=== PATIENT | female | born 1945 | race Caucasian/White ===

== ENCOUNTER 2024-01-24 06:24 | Day surgery (SDC) | payer MEDICARE, OTHER, SELFPAY ==
[2024-01-22 07:38] VITALS: BMI 34.0
[2024-01-24] VITALS (9 sets, daily range): BP systolic 87–152; BP diastolic 42–66; BMI 34.0
[2024-01-24] MEDS: CYSVIEW KIT 100 MG INTRAVES (12:54)
[2024-01-24 13:49] LABS: Glucose - Point of Care 115 mg/dl (70-99)
[2024-01-24] MEDS: NORMOSOL-R 1000 IV (14:11)
[2024-01-24 15:22] LABS: Glucose - Point of Care 107 mg/dl (70-99)
[2024-01-24] MEDS: DETROL LA 4 MG PO (15:41)
[2024-01-24] MEDS: Pyridium 200 MG PO (15:41)
== END 2024-01-24 17:28 | disposition home or self-care (01) ==
LOC: SDS 06:24
PROVIDERS: ATTENDING PHYSICIAN Surgery
DX: D41.4 Neoplasm of uncertain behavior of bladder (principal); N30.20 Other chronic cystitis without hematuria; Z85.44 Personal history of malignant neoplasm of other female genital organs; Z87.448 Personal history of other diseases of urinary system
CPT/HCPCS: 52235; C9738; 88307; 82962; 88341; 88342; 93005

== ENCOUNTER 2024-05-07 09:37 | Emergency (ER) | payer MEDICARE, OTHER, SELFPAY ==
[2024-05-07 10:09] VITALS: BP 187/87
[2024-05-07 11:30] VITALS: BMI 33.0
--- NOTE | 2024-05-07 11:35 | ED.GENMED ---
History of Present Illness
General
Chief Complaint: Change in Mental Status
Source: patient
Exam Limitations: none
Time Seen by Provider: 05/07/24 11:29
Travel History
Have you had any contact with someone who has COVID-19?: No
Do you have any symptoms of coronavirus? Fever > 100 degrees, chills, cough, shortness of breath, sore throat, loss of taste or smell, muscle aches, or headache?: No
History of Present Illness
History of Present Illness:
See MDM
Past History
Past History
ED Past Medical History: HTN, Hypercholesterolemia, IDDM, Psychiatric and Other (TBI)
Social History
Tobacco: Non-smoker
Alcohol: None
Phy Exam
Physical Exam
Physical Exam:
See MDM
Course
Orders/Labs/Results
Orders:
Orders
05/07/24 11:31
CT Head W/o Iv Contrast Urgent
Comment:
Reason For Exam: fall
Hip, Right 2-3 Views [CR Hip - RT w/wo Pel 2-3 Vw*] Urgent
Comment:
Reason For Exam: fall
Include a pelvis x-ray?: Yes
05/07/24 11:32
EKG [Electrocardiogram (*1)] Urgent
Reason for Study: Other
Other Reason for Exam: confusion
EKG- Treatment ONCE
05/07/24 11:39
Complete Blood Count/With Diff Urgent
Comprehensive Metabolic Panel Urgent
05/07/24 12:21
UA Reflex to Culture [Urinalysis Reflex To Culture] Urgent
Date Specimen was Collected: 05/07/24
Time Specimen was Collected: 11:56
Urine Microscopic Reflex Cult Urgent
Urine Culture Urgent
JENNIFER Source: U
Specimen Description:
Date Specimen was Collected: 05/07/24
Time Specimen was Collected: 11:56
05/07/24 13:45
Ciprofloxacin HCl [Cipro] 500 mg PO ONCE ONE
Abnormal Lab Results
05/07/24 05/07/24
11:39 12:21
RBC 3.95 L 10^6/uL
(4.20-5.40)
Hgb 11.3 L g/dL
(12.0-16.0)
Hct 35.0 L %
(37.0-47.0)
MCHC 32.3 L g/dL
(33.0-37.0)
MPV 11.6 H fL
(7.4-10.4)
Immature Gran % 0.7 H %
(0-0.5)
BUN 28 H mg/dl
(7-17)
Glucose 154 H mg/dl
(70-99)
Ur Occult Blood Reflex 4+ A
(Negative)
Leukocyte Esterase Rfl 2+ A
(Negative)
Urine RBC >100 A /HPF
(0-2)
Urine WBC (Reflex) 40-50 A /HPF
(0-5)
Urine Bacteria (Reflex) Moderate A
(Negative)
Urine Albumin (Reflex) 1+ A
(Neg - Trace)
05/07/24 11:39
05/07/24 11:39
Vital Signs
Initial and Last Documented VS:
Initial Vital Signs
Temp Pulse Resp BP Pulse Ox
98.3 F 69 14 187/87 94
05/07/24 10:09 05/07/24 10:09 05/07/24 10:09 05/07/24 10:09 05/07/24 10:09
Last Documented Vital Signs
Temp Pulse Resp BP Pulse Ox
98.3 F 65 19 184/77 95
05/07/24 10:09 05/07/24 12:59 05/07/24 12:59 05/07/24 11:41 05/07/24 13:40
MDM/Problems Addressed
Differential Diagnosis Includes:
HPI and MDM Narrative:
78-year-old female presenting for evaluation of a fall. Patient has a history of traumatic brain injury and patient has good insight to this. She understands her diagnosis. There was initial question whether or not she has altered mental status.
Patient denies feeling altered. She complains of a fall with mild headache and right hip pain.
On exam, she is bed comfortably. She is in no acute distress. There is mild tenderness to right hip without abnormality noted. Will obtain x-ray of the hip and CT head given her prior history of TBI. Patient is answering questions appropriately
Physical exam
General: Well appearing and non-toxic
HEENT: protecting airway
Neck: Nontender, supple
CV: No evidence of cyanosis. Regular rate and rhythm
Resp: No accessory muscle use. Lungs clear
Abd: Non-distended
Extremities: No deformities. Mild tenderness to right hip. Distal extremity is neurovascular intact. +1 pitting edema bilateral lower extremities (patient denies any change leg edema)
Neuro: alert
Psych: Normal affect
Skin: Intact
Problems Addressed including Acute and Chronic Conditions affecting care:
1. Head injury
Acuity: acute
Prognosis: stable
Details: Will obtain CT head
2. Right hip pain status post fall
Acuity: acute
Prognosis: stable
Details: Will obtain x-ray
Updates
CT head negative for acute pathology. X-ray negative for fracture. Urine is concerning for infection. Patient does now acknowledge that she thinks she is urinating more frequently. Will start Cipro
Differential Diagnosis (but not limited to): Hip contusion, concussion, hyponatremia
Testing considered: Troponin and BNP but she denies chest pain or shortness
Drug therapy (if applicable): OTC meds, please see d/c instruction regarding Rx drugs
Amount and/or Complexity of Data Reviewed
Clinical info obtained from: Patient
External data reviewed: N/A
Labs I independently reviewed (but not limited to): Urinalysis
Radiology: The CT scan was personally and independently reviewed. In addition, official CT report reviewed.
X-ray independently reviewed: Hip and pelvic x-ray negative for fracture
Pulse Ox: not hypoxic
EKG independently reviewed: Sinus rhythm, left axis, no STEMI
Material Handler 1St Shift: N/A
Critical Care: N/A
Risk of Complication:
Social Determinants of health: Good social support
Discussed with other providers: N/A
Escalation of Care includes Admit/Obs: After being observed in the Emergency Department, pt stable for discharge.
Occasional wrong word or 'sound a like' substitutions may have occurred due to the inherent limitations of voice recognition software. Read the chart carefully and recognize, using context, where substitutions have occurred.
*Critical Care Note
Total Time (30-74mins, 75-104mins- exclusive of procedures): Not Applicable
ED Attending Note
-
Portions of this chart may have been created with voice recognition software.� Occasional wrong word or��sound alike� substitutions may have occurred due to the inherent limitations of voice recognition software.
Discharge Plan
Departure
Patient Disposition: Home (Routine Discharge)
Date of Disposition: 05/07/24
Time of Disposition: 13:47
Patient with high blood pressure during this ER visit?: Yes
Discharge Problem:
Acute UTI
Instructions: BLOOD PRESSURE
Prescriptions:
New
ciprofloxacin HCl 500 mg Tablet
500 mg PO BID Qty: 10 0RF
No Action
lidocaine 4 % Adhesive Patch,Medicated
1 patch TOPICAL DAILY
Rx Instructions:
Remove @ HS
cetirizine 10 mg Tablet
10 mg PO DAILY
fluconazole 150 mg Tablet
150 mg PO Q3D
loperamide 2 mg Tablet
2 mg PO Q8H PRN (Reason: Loose stools)
Aquaphor Ointment
1 applic TOPICAL BID
Rx Instructions:
External Genitalia Irritation
simvastatin 80 mg Tablet
80 mg PO HS
aspirin [Aspir-81] 81 mg Tablet,Delayed Release (Dr/Ec)
81 mg PO DAILY
acetaminophen 500 mg Tablet
1,000 mg PO Q12H
methenamine hippurate 1 gram Tablet
1 g PO Q12H
magnesium hydroxide [Milk of Magnesia] 400 mg/5 mL Suspension
30 ml PO QPM PRN (Reason: Constipation)
bisacodyl 10 mg Suppository
10 mg [place] DAILY
nystatin 100,000 unit/gram Cream
1 applic TOPICAL BID
lisinopril 10 mg Tablet
10 mg PO DAILY
Enema 19-7 gram/118 mL Enema
118 ml [place] ONCE PRN (Reason: no result from bisacodyl)
hydrocortisone 2.5 % Cream
1 applic TOPICAL BID PRN (Reason: Rash)
Rx Instructions:
to left thigh
hydrocortisone 2.5 % Cream
1 applic TOPICAL BID PRN (Reason: to vaginal irritation)
ibuprofen 600 mg Tablet
600 mg PO Q8H PRN (Reason: Milder pain)
polyethylene glycol 3350 [Miralax] 17 gram/dose Powder
17 g PO PRN PRN (Reason: constipation)
estradiol 0.01 % (0.1 mg/gram) Cream
1 g VAGINAL MOFR
albuterol sulfate 90 mcg/actuation Hfa Aerosol Inhaler
2 puff INHALATION Q4H PRN (Reason: SOB, Wheezes)
docusate sodium 100 mg Tablet
100 mg PO BID
glipizide 5 mg Tablet
5 mg PO BID
levothyroxine 112 mcg Tablet
112 mcg PO DAILY
Saline Mist 0.65 % Aerosol,[place]
2 spray INTRANASAL PRN PRN (Reason: Dry Nose)
pregabalin 200 mg Capsule
200 mg PO TID
CeraVe Lotion
1 applic TOPICAL BID
Rx Instructions:
to hands
insulin glargine [Basaglar KwikPen U-100 Insulin] 100 unit/mL (3 mL) Insulin Pen
22 unit SC 2000
Rx Instructions:
reduce 20% night before surgery
Systane Complete 0.6 % Drops
1 drp BOTH EYES TID
lidocaine HCl [Aspercreme (lidocaine HCl)] 4 % Cream
1 applic TOPICAL QID
Rx Instructions:
to hands
Azo Cranberry 250 mg Tablet,Chewable
500 mg PO TID
Trulicity 3 mg/0.5 mL Pen Injector
3 mg SC WE
Calcium 600 + D(3)
1 tab PO DAILY
Diabetic Tussin Chest Conge
10 ml PO Q4H PRN (Reason: Cough)
Referrals:
NONE,* [Family Provider] -
Activity Restrictions/Additional Instructions:
Please return for any worsening symptoms.
You may return at any time if you have further concerns.
Please follow up with your doctor at the first available appointment, preferably this week.
Thank you for choosing [facility].
Interventions
Interventions:
*Risk Screen - Suicide Last Done: 05/07/24 11:30
*General Assessment Last Done: 05/07/24 11:30
*Neglect/Abuse Screening Last Done: 05/07/24 11:30
*ED COVID-19 Vaccine History Last Done: 05/07/24 10:18
ED- Neurological Assessment Last Done: 05/07/24 11:30
Discharge Date and Time
Print Language: LITHUANIAN
[2024-05-07 11:41] VITALS: BP 184/77
[2024-05-07 11:57] LABS: % Basophils 0.8 % (0-2); % Eosinophils 2.6 % (0-6); % Immature Granulocytes 0.7 % (0-0.5); % Lymphocytes 22.3 % (20.5-51.1); % Monocytes 8.7 % (1.7-9.3); % Neutrophils 64.9 % (42.2-75.2); Absolute Basophils 0.1 10^3/uL (0-0.2); Absolute Eosinophils 0.2 10^3/uL (0-0.7); Absolute Lymphocytes 1.4 10^3/uL (1.2-3.4); Absolute Monocytes 0.5 10^3/uL (0.1-0.6); Hemoglobin 11.3 g/dL (12.0-16.0); Mean Corp Hgb Conc. 32.3 g/dL (33.0-37.0); Mean Corpuscular Hgb 28.6 pg (27.0-31.0); Mean Corpuscular Volume 88.6 fL (81.0-99.0); Mean Platelet Volume 11.6 fL (7.4-10.4); Nucleated Red Blood Cells % 0 %; Platelet Count 140 10^3/uL (130-400); Red Blood Cell Count 3.95 10^6/uL (4.20-5.40); Red Cell Dist. Width 14.4 % (11.5-14.5); White Blood Cell Count 6.1 10^3/uL (4.8-10.8)
[2024-05-07 12:02] LABS: ALT (SGPT) 23 U/L (0-35); AST (SGOT) 32 U/L (14-36); Albumin 4.1 g/dl (3.5-5.0); Alkaline Phosphatase 56 U/L (38-126); Blood Urea Nitrogen 28 mg/dl (7-17); Calcium 9.2 mg/dl (8.4-10.2); Carbon Dioxide 28 mmol/L (22-30); Chloride 107 mmol/L (98-107); Estimated Creatinine Clearance 57 ml/min; Glucose 154 mg/dl (70-99); Potassium 3.9 mmol/L (3.5-5.1); Sodium 144 mmol/L (135-145); Total Bilirubin 0.3 mg/dl (0.2-1.3); Total Protein 6.6 g/dl (6.3-8.2); eGFR 57.66
[2024-05-07 12:35] LABS: Urine Albumin 1+ (Neg - Trace); Urine Bilirubin Negative (Negative); Urine Character Clear (Clear); Urine Color Yellow; Urine Glucose Negative (Negative); Urine Ketone Negative (Negative); Urine Leukocyte 2+ (Negative); Urine Nitrite Negative (Negative); Urine Occult Blood 4+ (Negative); Urine Urobilinogen Negative (Neg - 1+)
[2024-05-07 12:44] LABS: Urine Bacteria Moderate (Negative); Urine Mucus Few; Urine Red Blood Cell >100 /HPF (0-2); Urine Squamous Cell 0-2 /LPF (Few); Urine White Cell 40-50 /HPF (0-5)
[2024-05-07] MEDS: CIPRO 500 MG PO (13:55)
[2024-05-07 16:55] VITALS: BP 156/75
== END 2024-05-07 16:58 | disposition home or self-care (01) ==
LOC: EMR 09:37
PROVIDERS: Physician Assistant Medical; EMERGENCY PHYSICIAN Student in an Organized Health Care Education/Training Program
DX: N39.0 Urinary tract infection, site not specified (principal); R51.9 Headache, unspecified; M25.551 Pain in right hip; W19.XXXA Unspecified fall, initial encounter; R60.0 Localized edema; I10 Essential (primary) hypertension; E78.00 Pure hypercholesterolemia, unspecified; E11.9 Type 2 diabetes mellitus without complications; Z87.820 Personal history of traumatic brain injury; Z79.82 Long term (current) use of aspirin; Z79.4 Long term (current) use of insulin; Z88.2 Allergy status to sulfonamides; Z88.8 Allergy status to other drugs, medicaments and biological substances; Z91.018 Allergy to other foods; Z91.048 Other nonmedicinal substance allergy status
CPT/HCPCS: 99285; 70450; 73502; 80053; 81003; 81015; 85025; 87086; 93005

== ENCOUNTER 2024-05-08 01:19 | Inpatient (IN) | payer MEDICARE, OTHER, SELFPAY ==
[2024-05-07 21:16] VITALS: BP 169/92; BMI 33.6
[2024-05-07 21:26] VITALS: BP 169/92
--- NOTE | 2024-05-07 21:50 | ED.GENMED ---
History of Present Illness
General
Chief Complaint: Fall
Time Seen by Provider: 05/07/24 21:39
Travel History
Have you had any contact with someone who has COVID-19?: No
Do you have any symptoms of coronavirus? Fever > 100 degrees, chills, cough, shortness of breath, sore throat, loss of taste or smell, muscle aches, or headache?: No
History of Present Illness
History of Present Illness:
Patient presents the emergency department with generalized weakness and fall. Was seen earlier in the emergency department for altered mental status and weakness found to have a UTI and discharged on Cipro. Per fci reports, patient was on
the commode and fell off. She landed on her right shoulder. Patient does not remember exactly what happened. She is only able to say her name and does not provide any detailed history.
Past History
Past History
ED Past Medical History: HTN, Hypercholesterolemia, IDDM, Psychiatric and Other (TBI)
Social History
Tobacco: Non-smoker
Alcohol: None
Phy Exam
Physical Exam
Physical Exam:
GENERAL APPEARANCE: NAD, awake, generally weak
EYES lids/conjunctiva normal
EARS/NOSE/THROAT Mucous membranes moist, uvula midline without oral pharyngeal erythema, exudate or swelling
HEAD/NECK normocephalic atraumatic, neck is supple, abrasion to L upper lip with small bruising
RESPIRATORY respiratory effort normal, speaks in full sentences, no accessory muscle use. Lungs clear to auscultation without rhonchi, wheezes, rales
CARDIAC Regular rate and rhythm, no edema.
ABDOMINAL Soft, ND/NT. No pulsatile masses on exam, rebound tenderness, Hunt sign or pain over Mcburney's point.
MUSCLES/EXTREMITIES No abnormal range of motion, no swelling. specifically R shoulder has FROM, R hip FROM
SKIN Warm, pink and dry. No rashes
NEUROLOGICAL awake, speech is clear, disoriented (Aox1 to person), follows commands
PSYCH Normal mood and affect. Judgement/competence is appropriate
Course
Orders/Labs/Results
Orders:
Orders
05/07/24 21:38
Comprehensive Metabolic Panel Urgent
05/07/24 21:41
Urinalysis Reflex To Culture Urgent
Date Specimen was Collected: 05/07/24
Time Specimen was Collected: 21:38
Urine Microscopic Reflex Cult Urgent
Urine Culture Urgent
JENNIFER Source: U
Specimen Description:
Date Specimen was Collected: 05/07/24
Time Specimen was Collected: 21:38
05/07/24 21:46
CT Cervical Spine W/o Iv Contr Urgent
Comment:
Reason For Exam: fall with injury
CT Head W/o Iv Contrast Urgent
Comment:
Reason For Exam: fall with injury, altered
CR Shoulder, Trauma - Right Urgent
Reason For Exam: shoulder pain
05/07/24 21:59
Complete Blood Count/With Diff Urgent
05/07/24 22:05
CefTRIAXone [Rocephin] 1,000 mg IV NOW STA
05/07/24 22:07
Electrocardiogram (*1) Urgent
Reason for Study: Other
Other Reason for Exam: sepsis
05/07/24 22:[address] Non Medication Order As Directed
Physician Order: foot access
05/07/24 22:24
Lactate Level [Lactic Acid] Urgent
Blood Culture Q30M
JENNIFER Source: Blood/Venous
Specimen Description:
05/07/24 22:45
Blood Culture Q30M
JENNIFER Source: Blood/Venous
Specimen Description:
Abnormal Lab Results
05/07/24 05/07/24
21:41 21:59
RBC 4.04 L 10^6/uL
(4.20-5.40)
Hgb 11.6 L g/dL
(12.0-16.0)
Hct 33.9 L %
(37.0-47.0)
MPV 11.4 H fL
(7.4-10.4)
Abs Immat Gran (auto) 0.1 H 10^3/uL
(0-0.05)
Absolute Neuts (auto) 7.2 H 10^3/uL
(1.4-6.5)
Absolute Lymphs (auto) 1.1 L 10^3/uL
(1.2-3.4)
Absolute Monos (auto) 0.8 H 10^3/uL
(0.1-0.6)
Neutrophils % 78.1 H %
(42.2-75.2)
Lymphocytes % 11.4 L %
(20.5-51.1)
Urine Ketones 1+ A
(Negative)
Ur Occult Blood Reflex 4+ A
(Negative)
Urine Nitrite (Reflex) Positive A
(Negative)
Leukocyte Esterase Rfl 1+ A
(Negative)
Urine RBC >100 A /HPF
(0-2)
Urine Bacteria (Reflex) Moderate A
(Negative)
Urine Albumin (Reflex) 3+ A
(Neg - Trace)
05/07/24 21:59
Vital Signs
Initial and Last Documented VS:
Initial Vital Signs
Temp Pulse Resp BP Pulse Ox
98.3 F 75 22 169/92 99
05/07/24 21:16 05/07/24 21:16 05/07/24 21:16 05/07/24 21:16 05/07/24 21:16
Last Documented Vital Signs
Temp Pulse Resp BP Pulse Ox
98.3 F 75 22 169/92 99
05/07/24 21:16 05/07/24 21:16 05/07/24 21:16 05/07/24 21:26 05/07/24 21:30
*Critical Care Note
Total Time (30-74mins, 75-104mins- exclusive of procedures): Not Applicable
ED Attending Note
ED Attending Note
ED Attending Note:
Patient with history of TBI, returns to emergency department with worsening altered mental status and recurrent fall. No focal weakness or neurologic symptoms to suspect acute CVA - more general symptoms, suspect metabolic encephalopathy. she has
known UTI, was given a dose of oral Cipro and discharged. Given worsening of her mental status, will broaden to IV ceftriaxone. Given repeat trauma, will repeat CT head. Plan to admit for continued management
-
Portions of this chart may have been created with voice recognition software.� Occasional wrong word or��sound alike� substitutions may have occurred due to the inherent limitations of voice recognition software.
Discharge Plan
Departure
Patient Disposition: Admit
Date of Disposition: 05/07/24
Time of Disposition: 22:53
Presentation/result/management discussed w/ accepting MD/DO: Hospitalist
Discharge Problem:
Acute UTI, Acute metabolic encephalopathy
Prescriptions:
No Action
lidocaine 4 % Adhesive Patch,Medicated
1 patch TOPICAL DAILY PRN (Reason: topical pain)
Rx Instructions:
Remove @ HS
cetirizine 10 mg Tablet
10 mg PO DAILY
fluconazole 150 mg Tablet
150 mg PO Q72H PRN (Reason: prophylaxis)
loperamide 2 mg Tablet
2 mg PO Q8H PRN (Reason: Loose stools)
simvastatin 80 mg Tablet
80 mg PO HS
aspirin [Aspir-81] 81 mg Tablet,Delayed Release (Dr/Ec)
81 mg PO DAILY
acetaminophen 500 mg Tablet
1,000 mg PO TID
methenamine hippurate 1 gram Tablet
1 g PO Q12H
magnesium hydroxide [Milk of Magnesia] 400 mg/5 mL Suspension
30 ml PO HS PRN (Reason: if no bm in 3 days)
bisacodyl 10 mg Suppository
10 mg [place] DAILY
nystatin 100,000 unit/gram Cream
1 applic TOPICAL BID
lisinopril 10 mg Tablet
10 mg PO DAILY
Enema 19-7 gram/118 mL Enema
118 ml [place] DAILY PRN (Reason: no result from bisacodyl)
hydrocortisone 2.5 % Cream
1 applic TOPICAL BID
Rx Instructions:
to left thigh
hydrocortisone 2.5 % Cream
1 applic TOPICAL BID PRN (Reason: to vaginal irritation)
polyethylene glycol 3350 [Miralax] 17 gram/dose Powder
17 g PO DAILY PRN (Reason: constipation)
estradiol 0.01 % (0.1 mg/gram) Cream
1 g VAGINAL MOFR@1999
albuterol sulfate 90 mcg/actuation Hfa Aerosol Inhaler
2 puff INHALATION R Q4 PRN (Reason: sob/wheezing)
docusate sodium 100 mg Tablet
100 mg PO BID
glipizide 5 mg Tablet
5 mg PO BID
levothyroxine 112 mcg Tablet
112 mcg PO DAILY
Saline Mist 0.65 % Aerosol,[place]
2 spray INTRANASAL DAILY PRN (Reason: dry nose)
pregabalin 200 mg Capsule
200 mg PO TID
CeraVe Lotion
1 applic TOPICAL BID
Rx Instructions:
to hands
calcium carbonate-vitamin D3 [Calcium 600 + D(3)] 600 mg-10 mcg (400 unit) Tablet
1 tab PO DAILY
insulin glargine [Basaglar KwikPen U-100 Insulin] 100 unit/mL (3 mL) Insulin Pen
22 unit SC HS
Systane Complete 0.6 % Drops
2 drp BOTH EYES TID
Azo Cranberry 250 mg Tablet,Chewable
500 mg PO TID
Trulicity 3 mg/0.5 mL Pen Injector
3 mg SC WE
Diabetic Tussin Chest Conge
10 ml PO Q4H PRN (Reason: Cough)
ciprofloxacin HCl 500 mg Tablet
500 mg PO BID Qty: 10 0RF
ibuprofen 800 mg tablet
800 mg PO TID@0600,1400,2200
phenazopyridine 200 mg Tablet
200 mg PO BID PRN (Reason: dysuria)
lidocaine 4 % Cream
1 applic TOPICAL QID
Patient Comments:
05/07/2024: apply to bilateral hands
Aquaphor Ointment
1 applic TOPICAL BID
Patient Comments:
05/07/2024: apply to external genitalia
fluticasone propionate 50 mcg/actuation [place],Suspension
1 spray INTRANASAL BID
trospium 20 mg tablet
20 mg PO HS
Interventions
Interventions:
*Risk Screen - Suicide Last Done: 05/07/24 21:34
*Neglect/Abuse Screening Last Done: 05/07/24 21:34
ED- Fall Risk Assessment Last Done: 05/07/24 21:34
ED-Musculoskeletal Assessment Last Done: 05/07/24 21:34
ED- Neurological Assessment Last Done: 05/07/24 21:34
ED-Skin Assessment Last Done: 05/07/24 21:34
Discharge Date and Time
Print Language: ANDORRAN
[2024-05-07 21:54] LABS: Urine Albumin 3+ (Neg - Trace); Urine Bilirubin Negative (Negative); Urine Character Slightly Cloudy (Clear); Urine Color Amber; Urine Glucose Negative (Negative); Urine Ketone 1+ (Negative); Urine Leukocyte 1+ (Negative); Urine Nitrite Positive (Negative); Urine Occult Blood 4+ (Negative); Urine Urobilinogen Negative (Neg - 1+)
[2024-05-07 22:01] LABS: Urine Squamous Cell 0-2 /LPF (Few)
[2024-05-07 22:02] LABS: Urine Red Blood Cell >100 /HPF (0-2)
[2024-05-07 22:04] LABS: Urine Bacteria Moderate (Negative)
[2024-05-07 22:09] LABS: % Basophils 0.5 % (0-2); % Eosinophils 1.2 % (0-6); % Immature Granulocytes 0.5 % (0-0.5); % Lymphocytes 11.4 % (20.5-51.1); % Monocytes 8.3 % (1.7-9.3); % Neutrophils 78.1 % (42.2-75.2); Absolute Basophils 0.1 10^3/uL (0-0.2); Absolute Eosinophils 0.1 10^3/uL (0-0.7); Absolute Immature Granulocytes 0.1 10^3/uL (0-0.05); Absolute Lymphocytes 1.1 10^3/uL (1.2-3.4); Absolute Monocytes 0.8 10^3/uL (0.1-0.6); Absolute Neutrophils 7.2 10^3/uL (1.4-6.5); Hematocrit 33.9 % (37.0-47.0); Hemoglobin 11.6 g/dL (12.0-16.0); Mean Corp Hgb Conc. 34.2 g/dL (33.0-37.0); Mean Corpuscular Hgb 28.7 pg (27.0-31.0); Mean Corpuscular Volume 83.9 fL (81.0-99.0); Mean Platelet Volume 11.4 fL (7.4-10.4); Nucleated Red Blood Cells % 0 %; Platelet Count 135 10^3/uL (130-400); Red Blood Cell Count 4.04 10^6/uL (4.20-5.40); Red Cell Dist. Width 14.5 % (11.5-14.5); White Blood Cell Count 9.2 10^3/uL (4.8-10.8)
[2024-05-07 22:44] LABS: Lactic Acid 1.7 mmol/L (0.7-2.0)
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
[2024-05-07] MEDS: ROCEPHIN 1000 MG IV (23:21)
[2024-05-08] VITALS (14 sets, daily range): BP systolic 120–246; BP diastolic 64–164; PULSE 82; O2SAT 91; BMI 33.6
[2024-05-08 00:37] LABS: ALT (SGPT) 25 U/L (0-35); AST (SGOT) 40 U/L (14-36); Albumin 4.1 g/dl (3.5-5.0); Alkaline Phosphatase 62 U/L (38-126); Blood Urea Nitrogen 26 mg/dl (7-17); Calcium 10.1 mg/dl (8.4-10.2); Carbon Dioxide 26 mmol/L (22-30); Chloride 107 mmol/L (98-107); Estimated Creatinine Clearance 66 ml/min; Glucose 163 mg/dl (70-99); Potassium 3.9 mmol/L (3.5-5.1); Sodium 141 mmol/L (135-145); Total Bilirubin 0.5 mg/dl (0.2-1.3); Total Protein 6.7 g/dl (6.3-8.2); eGFR > 60.00
[2024-05-08 06:22] LABS: Hematocrit 32.8 % (37.0-47.0); Hemoglobin 10.8 g/dL (12.0-16.0); Mean Corp Hgb Conc. 32.9 g/dL (33.0-37.0); Mean Corpuscular Hgb 28.3 pg (27.0-31.0); Mean Corpuscular Volume 86.1 fL (81.0-99.0); Mean Platelet Volume 11.3 fL (7.4-10.4); Platelet Count 133 10^3/uL (130-400); Red Blood Cell Count 3.81 10^6/uL (4.20-5.40); Red Cell Dist. Width 14.3 % (11.5-14.5); White Blood Cell Count 7.7 10^3/uL (4.8-10.8)
[2024-05-08 07:03] LABS: Blood Urea Nitrogen 21 mg/dl (7-17); Calcium 9.7 mg/dl (8.4-10.2); Carbon Dioxide 31 mmol/L (22-30); Chloride 101 mmol/L (98-107); Estimated Creatinine Clearance 74 ml/min; Glucose 174 mg/dl (70-99); HDL Cholesterol 43 mg/dl; LDL Cholesterol, Calculated 55 mg/dl; Magnesium 1.6 mg/dl (1.6-2.3); Potassium 3.4 mmol/L (3.5-5.1); Sodium 140 mmol/L (135-145); Total Cholesterol 148 mg/dl (50-199); Triglyceride 251 mg/dl (10-149); Very Low Density Lipoprotein 50 mg/dl (0-30); eGFR > 60.00
[2024-05-08 09:34] LABS: Glucose - Point of Care 197 mg/dl (70-99)
[2024-05-08] MEDS: LYRICA 200 MG PO ×2 (09:41→22:14)
[2024-05-08] MEDS: ASPIR LOW (ENTERIC COATED) 81 MG PO (09:41)
[2024-05-08] MEDS: REFRESH EYE DROPS (PF) 2 DROPS BOTH EYES ×3 (09:41→21:50)
[2024-05-08] MEDS: TYLENOL 1000 MG PO (09:41)
[2024-05-08] MEDS: COLACE 100 MG PO ×2 (09:41→21:22)
[2024-05-08] MEDS: ZYRTEC 10 MG PO (09:42)
--- NOTE | 2024-05-08 09:59 | CON.NEURO4 ---
Addendum entered and electronically signed by Teofilo Carson MD 05/08/24 15:10:
No seizure activity by nurse with foaming around the mouth with postictal confusion and lethargy, was given 1 mg IV lorazepam.
CT head repeated after seizure shows similar findings.
EEG study which is finishing shows slowing and no nonconvulsive seizure activity, patient most likely postictal in addition to some of the sedation from lorazepam.
Seizure etiology highly likely to be due to the acute to subacute right parietal lobe ischemic stroke.
Would give 2000 mg IV levetiracetam and then start 1000 mg every 12 hours IV
Continue neurologic checks seizure precautions aspiration precautions
Original Note:
Consultation - Neurology 4
-
CONSULTING PHYSICIAN: Steph Carson
REFERRING PHYSICIAN: Hospitalist
DICTATED BY: Steph Carson
DATE/TIME OF REQUEST: 05/08/24
DATE/TIME OF CONSULTATION: 05/08/24
Reason for Consultation: Suspected ischemic stroke on CT head non-contrast
History of Present Illness:
The patient is a 78-year-old woman with past medical history of traumatic brain injury, vulvar carcinoma, hypertension hyperlipidemia presented to hospital with a fall and has been noted to have significant confusion with finding of suspected
ischemic stroke on the right parietal lobe with CT head noncontrast done recently.
Patient had had an ER visit on 05/07 after generalized weakness and a fall, she had mild headache and right hip pain. At that time noted to be answering questions appropriately and did endorse dysuria, had abnormal urinalysis so started on
ciprofloxacin. CT head noncontrast done after this initial ER visit found no abnormalities.
Patient is not able to give any reliable history at this time she is awake and converses with me but is confused not able to provide insight or recollection of recent events or her medical conditions. Does appear that she is on aspirin 81 mg daily
there is no known history of stroke TIA or coronary artery disease in the patient.
Past Medical History: TBI, vulvar carcinoma, hypertension, hyperlipidemia
Surgical History: Vulvar carcinoma resection, TURBT
Family History: Non-contributory
Social History: Lives at [facility], otherwise unclear
Review of Symptoms:
Patient denies any fever, headache, chest pain, shortness of breath, GI or symptoms.
Physical Exam:
Elderly woman no acute distress appears comfortable no signs of head or neck trauma, eyes are clear oropharynx is clear neck with no masses, heart rate regular breathing unlabored abdomen is obese soft nontender no lower extremity edema
Neurologic Examination:
Mental status examination shows a patient who is awake and alert, she is able to say her name, she has little to no recollection of recent events, speech is slow, she has difficulty obeying two-step commands and will inconsistently obey one-step
command, she will slowly say her name, she shows no evidence of left-sided hemineglect not recognizing her own left arm.
Cranial nerve examination shows difficulty in the left hemivisual field, extraocular's are full and resting gaze is midline, smile is symmetric, there is dysarthria, pupils 3mm equal round and reactive to light bilaterally, no ptosis
Motor examination shows no pronator drift no obvious weakness of the arms when outstretched shows a least 4/5 and symmetric shoulder abduction, leg strength shows symmetric 2/5 withdrawal, she does explain annoyance when provided with tingling of
the feet bilaterally and does move the feet and legs in response to this
Reflexes are diminished throughout Babinski is negative no clonus
No ataxia on finger-nose testing bilaterally
Neuro Imaging: CT head non contrast with right parietal lobe hypoattenuation which I suspect represents early developing acute infarction, no hemorrhages seen
Impressions
1. Acute confusion, initially presented to the ER after follow-up with likely UTI and it does seem that her mental status is worsening since this first ER visit. Patient has some findings suggestive of right parietal lobe lesion with left-sided
neglect and possibly left hemianopia, suspect that patient does have right-sided parietal lobe infarction which is vaguely seen on the CT head noncontrast. Urinary tract infection may also be contributing.
2. History of traumatic brain injury in the past may predispose to confusion
3. Hypertension
4. Hyperlipidemia
5. Abnormal urinalysis with report of dysuria and polyuria recently being treated with antibiotics for UTI
Patient has the following risk factors for their symptoms: HTN, Hyperlipidemia
Recommendations:
1. Give Clopidogrel 300 mg once now, start DAPT therapy tomorrow, duration most likely 21 days
2. Neurologic checks and NIH scales
3. Goal normotension
4. Cardiac telemetry, check TTE
5. Minimize sedating medications
6. PT/OT speech therapy evaluations
7. Treat UTI follow cultures
8. Check lipid panel and A1c
9. MRI of the brain, MRA of the head and neck
10. Continue Pregabalin
Will follow
NIH Stroke Score
Subsequent NIH Scale
Date of Subsequent NIH Scale: 05/08/24
Time of Subsequent NIH Scale: 10:13
NIH Stroke Score
Level of Consciousness: 0 - Alert
LOC Questions: 1-Answers one correctly
LOC Commands: 0-Performs both correctly
Best Horizontal Gaze: 0-Normal
Visual Negrete: 2=Full hemianopia
Facial Palsy: 0=Normal, symmetrical
Motor - Right Arm: 0=No drift 10 seconds
Motor - Left Arm: 0=No drift 10 seconds
Motor - Right Le-None vs. gravity
Motor - Left Le-None vs. gravity
Limb Ataxia: 0-Absent
Sensation: 0-Normal
Best Language: 0-No aphasia
Dysarthria: 1-Mild slurring
Extinction and Inattention: 2-Total niraj inattention
Total Score:: 12
Home Medications
-
Home Medications
Diabetic Tussin Chest Conge 10 ml PO Q4H PRN Cough 01/21/24
acetaminophen 500 mg tablet 1,000 mg PO TID 01/21/24
albuterol sulfate 90 mcg/actuation aerosol inhaler 2 puff inhalation R Q4 PRN sob/wheezing 01/21/24
aspirin 81 mg tablet,delayed release 81 mg PO DAILY 01/21/24
bisacodyl 10 mg rectal suppository 10 mg SC DAILY No reilef from MOM 01/21/24
calcium carbonate 600 mg-vitamin D3 10 mcg (400 unit) tablet (Calcium 600 + D(3)) 1 tab PO DAILY 01/21/24
ceramides 1,3,6-II 1 applic topical BID 01/21/24
cetirizine 10 mg tablet 10 mg PO DAILY 01/21/24
cranberry fruit concentrate 250 mg chewable tablet (Azo Cranberry) 500 mg PO TID 01/21/24
docusate sodium 100 mg tablet 100 mg PO BID 01/21/24
dulaglutide 3 mg/0.5 mL subcutaneous pen injector (Trulicity) 3 mg SC WE 01/21/24
estradiol 0.01% (0.1 mg/gram) vaginal cream 1 g vaginal MOFR@199901/21/24
fluconazole 150 mg tablet 150 mg PO Q72H PRN prophylaxis 01/21/24
glipizide 5 mg tablet 5 mg PO BID 01/21/24
hydrocortisone 2.5 % topical cream 1 applic topical BID PRN to vaginal irritation 01/21/24
hydrocortisone 2.5 % topical cream 1 applic topical BID Rash 01/21/24
insulin glargine 100 unit/mL (3 mL) subcutaneous pen (Basaglar KonradPen U-100 Insulin) 22 unit SC HS 01/21/24
levothyroxine 112 mcg tablet 112 mcg PO DAILY 01/21/24
lidocaine 4 % topical patch 1 patch topical DAILY PRN topical pain 01/21/24
lisinopril 10 mg tablet 10 mg PO DAILY 01/21/24
loperamide 2 mg tablet 2 mg PO Q8H PRN Loose stools 01/21/24
magnesium hydroxide 400 mg/5 mL oral suspension (Milk of Magnesia) 30 ml PO HS PRN if no bm in 3 days 01/21/24
methenamine hippurate 1 gram tablet 1 g PO Q12H 01/21/24
nystatin 100,000 unit/gram topical cream 1 applic topical BID 01/21/24
polyethylene glycol 3350 17 gram/dose oral powder (Miralax) 17 g PO DAILY PRN constipation 01/21/24
pregabalin 200 mg capsule 200 mg PO TID 01/21/24
propylene glycol 0.6 % eye drops (Systane Complete) 2 drp BOTH EYES TID 01/21/24
simvastatin 80 mg tablet 80 mg PO HS 01/21/24
sodium chloride 0.65 % nasal spray aerosol (Saline Mist) 2 spray intranasal DAILY PRN dry nose 01/21/24
sodium phosphates 19 gram-7 gram/118 mL enema (Enema) 118 ml SC DAILY PRN no result from bisacodyl 01/21/24
ciprofloxacin HCl 500 mg tablet 500 mg PO BID #10 tabs 05/07/24
fluticasone propionate 50 mcg/actuation nasal spray,suspension 1 spray intranasal BID 05/07/24
ibuprofen 800 mg tablet 800 mg PO TID@0600,1400,2200 05/07/24
lidocaine 4 % topical cream 1 applic topical QID 05/07/24
mineral oil-hydrophil petrolat topical ointment 1 applic topical BID 05/07/24
phenazopyridine 200 mg tablet 200 mg PO BID PRN dysuria 05/07/24
trospium 20 mg tablet 20 mg PO HS 05/07/24
Allergies
-
Allergies
Allergy/AdvReac Type Severity Reaction Status Date / Time
metformin Allergy Per Verified 05/07/24 21:28
Facility
orange Allergy Per Verified 05/07/24 21:28
Facility
pollen extracts Allergy Per Verified 05/07/24 21:28
Facility
Sulfa (Sulfonamide Allergy Per Verified 05/07/24 21:28
Antibiotics) Facility
Vital Signs / Labs
-
Vital Signs and Labs:
Temp Pulse Resp BP Pulse Ox
98.0 F 77 22 190/78 92
05/08/24 07:50 05/08/24 08:15 05/08/24 08:15 05/08/24 08:00 05/08/24 07:30
05/08/24 06:08
05/08/24 06:08
05/07/24 05/07/24 05/08/24
21:41 21:59 00:11
RBC 4.04 L
Hgb 11.6 L
Hct 33.9 L
MCHC
MPV 11.4 H
Abs Immat Gran (auto) 0.1 H
Absolute Neuts (auto) 7.2 H
Absolute Lymphs (auto) 1.1 L
Absolute Monos (auto) 0.8 H
Neutrophils % 78.1 H
Lymphocytes % 11.4 L
Potassium
Carbon Dioxide
BUN 26 H
Glucose 163 H
AST 40 H
Triglycerides
VLDL Cholesterol, Calc
Urine Ketones 1+ A
Ur Occult Blood Reflex 4+ A
Urine Nitrite (Reflex) Positive A
Leukocyte Esterase Rfl 1+ A
Urine RBC >100 A
Urine Bacteria (Reflex) Moderate A
Urine Albumin (Reflex) 3+ A
POC Glucose
05/08/24 05/08/24
06:08 09:33
RBC 3.81 L
Hgb 10.8 L
Hct 32.8 L
MCHC 32.9 L
MPV 11.3 H
Abs Immat Gran (auto)
Absolute Neuts (auto)
Absolute Lymphs (auto)
Absolute Monos (auto)
Neutrophils %
Lymphocytes %
Potassium 3.4 L
Carbon Dioxide 31 H
BUN 21 H
Glucose 174 H
AST
Triglycerides 251 H
VLDL Cholesterol, Calc 50 H
Urine Ketones
Ur Occult Blood Reflex
Urine Nitrite (Reflex)
Leukocyte Esterase Rfl
Urine RBC
Urine Bacteria (Reflex)
Urine Albumin (Reflex)
POC Glucose 197 H
--- NOTE | 2024-05-08 10:15 | PTOTSP ---
DISTRICT SALES LEADER Evaluations
Patient presents with signs concerning for mild oral/pharyngeal dysphagia without signs of aspiration. Patient has acute on chronic risk factors for dysphagia (i.e., UTI, concern for stroke; TBI; hx dysphagia documented).
Mild changes to motor speech observed which did not impact intelligibility to unfamiliar listener.
Signs of expressive (moderate-severe) greater than receptive (mild-moderate) aphasia observed with intact word repetition. Quick Aphasia Battery held due to patient's pain. Further assessment warranted. It is unclear what level of speech/language
changes patient has at baseline from her prior TBI.
Recommend:
1. IDDSI Level 6 (soft/bite sized), IDDSI Level 0 (thin liquids)
2. Medications - whole in puree
3. Strategies - supervision, assistance, PO only when awake/alert, small single sips/bites, slow rate
4. Dysphagia therapy at the acute care level as well as further language/cognitive assessment.
[2024-05-08] MEDS: SYNTHROID 112 MCG PO (11:02)
[2024-05-08] MEDS: NOVOLOG FLEXPEN-LOW RESISTANCE 1 UNITS SC ×2 (11:02→17:19)
[2024-05-08] MEDS: HYDROCORTISONE 2.5% CREAM TOPICAL (11:03)
[2024-05-08] MEDS: DESENEX/MITRAZOL/ZEASORB 1 APPLIC TOPICAL ×2 (11:03→21:22)
[2024-05-08] MEDS: PLAVIX 300 MG PO (11:07)
[2024-05-08 12:18] LABS: Glucose - Point of Care 206 mg/dl (70-99)
--- NOTE | 2024-05-08 12:50 | PTCARENOTE ---
Patient witnessed foaming at mouth, seizure activity noted, unresponsive, RR called. Physician notified, order obtained for IV Ativan now.
[2024-05-08] MEDS: ATIVAN 1 MG IV (13:08)
[2024-05-08 13:15] LABS: Glucose - Point of Care 217 mg/dl (70-99)
[2024-05-08] MEDS: NSS (PRESERVATIVE FREE) 0.5 ML IV (13:15)
--- NOTE | 2024-05-08 13:17 | RR ---
A Rapid Response was called on this patient, please see Rapid Response form.
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
[2024-05-08 13:41] LABS: % Basophils 0.5 % (0-2); % Eosinophils 0.3 % (0-6); % Immature Granulocytes 0.5 % (0-0.5); % Neutrophils 68.7 % (42.2-75.2); Absolute Basophils 0.1 10^3/uL (0-0.2); Absolute Immature Granulocytes 0.1 10^3/uL (0-0.05); Absolute Lymphocytes 2.2 10^3/uL (1.2-3.4); Absolute Monocytes 0.8 10^3/uL (0.1-0.6); Absolute Neutrophils 6.7 10^3/uL (1.4-6.5); Hematocrit 35.5 % (37.0-47.0); Hemoglobin 11.6 g/dL (12.0-16.0); Mean Corp Hgb Conc. 32.7 g/dL (33.0-37.0); Mean Corpuscular Hgb 28.4 pg (27.0-31.0); Nucleated Red Blood Cells % 0 %; Platelet Count 146 10^3/uL (130-400); Red Blood Cell Count 4.08 10^6/uL (4.20-5.40); Red Cell Dist. Width 14.3 % (11.5-14.5); White Blood Cell Count 9.8 10^3/uL (4.8-10.8)
[2024-05-08 13:52] LABS: INR 1.07; PT 13.7 Sec (11.4-14.6)
[2024-05-08 13:53] LABS: APTT 26.6 Sec (23.4-35.0)
[2024-05-08 13:54] LABS: Albumin 4.5 g/dl (3.5-5.0); Alkaline Phosphatase 68 U/L (38-126); Blood Urea Nitrogen 20 mg/dl (7-17); Calcium 9.5 mg/dl (8.4-10.2); Carbon Dioxide 29 mmol/L (22-30); Chloride 99 mmol/L (98-107); Estimated Creatinine Clearance 74 ml/min; Glucose 202 mg/dl (70-99); Potassium 3.7 mmol/L (3.5-5.1); Sodium 139 mmol/L (135-145); Total Bilirubin 0.6 mg/dl (0.2-1.3); Total Protein 7.1 g/dl (6.3-8.2); eGFR > 60.00
[2024-05-08 13:58] LABS: Lactic Acid 5.4 mmol/L (0.7-2.0)
[2024-05-08 14:00] LABS: ALT (SGPT) 30 U/L (0-35)
--- NOTE | 2024-05-08 14:11 | PTCARENOTE ---
Pt. received from ED at 1345, pt. in complete post-ictal state. Pt. opened eyes to name but closed eyes immediately. Pt. receiving 60 minute EEG right now. Unable to perform NIH or neuro checks. Will continue to assess
[2024-05-08] MEDS: KEPPRA 2000 MG IV (14:20)
[2024-05-08] MEDS: NOVOLOG FLEXPEN-LOW RESISTANCE SC (14:21)
[2024-05-08 14:27] LABS: AST (SGOT) 48 U/L (14-36)
[2024-05-08] MEDS: LYRICA PO (15:10)
[2024-05-08] MEDS: LR 1000 IV (15:10)
[2024-05-08] MEDS: TYLENOL PO (15:11)
[2024-05-08 16:37] LABS: Glucose - Point of Care 192 mg/dl (70-99)
[2024-05-08] MEDS: LOVENOX 40 MG SC (17:20)
[2024-05-08] MEDS: TYLENOL 650 MG PO (19:40)
[2024-05-08 20:13] LABS: Lactic Acid 1.7 mmol/L (0.7-2.0)
[2024-05-08] MEDS: HYDROCORTISONE 2.5% CREAM 1 APPLIC TOPICAL (21:22)
[2024-05-08 21:33] LABS: Glucose - Point of Care 264 mg/dl (70-99)
[2024-05-08] MEDS: ROCEPHIN 1000 MG IV (21:55)
[2024-05-08] MEDS: STERILE WATER FOR INJECTION 10 ML IV (21:56)
[2024-05-08] MEDS: FLUSH (NSS) 1 FLUSH IV ×2 (21:56→22:15)
[2024-05-08] MEDS: LANTUS 0.119999999999999996 UNITS SC (22:00)
[2024-05-08] MEDS: LIPITOR 40 MG PO (22:14)
[2024-05-08] MEDS: DETROL 1 MG PO (22:14)
[2024-05-08] MEDS: KEPPRA 1000 MG IV (22:34)
[2024-05-09] MEDS: TYLENOL 1000 MG PO ×4 (00:03→21:50)
[2024-05-09 03:00] VITALS: BP 120/74
[2024-05-09] MEDS: LR 1000 IV (04:19)
[2024-05-09] MEDS: SYNTHROID 112 MCG PO (05:49)
--- NOTE | 2024-05-09 06:48 | PTCARENOTE ---
Late note due to patient care. Attempted to perform NIH, pt remained weak but more alert than prior assessment in the afternoon. Neuro checks done throughout the night. Pt appeared more alert and answering questions appropriately but still weak.
Neuro on-call was notified of patient's status this AM.
[2024-05-09 07:49] VITALS: BP 183/93
[2024-05-09 07:56] LABS: Glucose - Point of Care 171 mg/dl (70-99)
[2024-05-09] MEDS: NOVOLOG FLEXPEN-LOW RESISTANCE 1 UNITS SC ×2 (08:07→13:49)
[2024-05-09 08:10] LABS: HDL Cholesterol 39 mg/dl; LDL Cholesterol, Calculated 53 mg/dl; Total Cholesterol 146 mg/dl (50-199); Triglyceride 273 mg/dl (10-149); Very Low Density Lipoprotein 54 mg/dl (0-30)
--- NOTE | 2024-05-09 08:33 | PTCARENOTE ---
Addendum entered by Stefani Ugarte RN 05/09/24 08:38:
Made diamond driller neurology MD aware of NIH assessment findings as well.
Original Note:
Made hospitalist MD aware of patients left arm score change in NIH assessment. Pt is now not moving left arm. Previous assessment charting states she was.
[2024-05-09] MEDS: ZYRTEC 10 MG PO (08:39)
[2024-05-09] MEDS: PLAVIX 75 MG PO (08:39)
[2024-05-09] MEDS: COLACE PO (08:39)
[2024-05-09] MEDS: ASPIR LOW (ENTERIC COATED) 81 MG PO (08:39)
[2024-05-09] MEDS: LYRICA 200 MG PO ×3 (08:39→21:51)
[2024-05-09] MEDS: DESENEX/MITRAZOL/ZEASORB 1 APPLIC TOPICAL ×2 (08:40→19:57)
[2024-05-09] MEDS: REFRESH EYE DROPS (PF) 2 DROPS BOTH EYES ×3 (08:40→21:50)
[2024-05-09] MEDS: HYDROCORTISONE 2.5% CREAM TOPICAL (08:41)
[2024-05-09] MEDS: KEPPRA 1000 MG IV ×2 (09:32→19:58)
[2024-05-09 09:41] LABS: Glycohemoglobin (HgbA1c) 7.8 % (4.0-5.6)
--- NOTE | 2024-05-09 10:05 | W.PN.NEURO.1 ---
Today's Communication / Plan
-
Continue levetiracetam 1000 mg every 12 hours
Replace patient's usual aspirin with the use of clopidogrel. The size of the lesion and severity of symptomatology suggests against dual antiplatelet therapy
No indication this time for modifying the patient's usual statin dosing and patient may return to simvastatin 80 mg at bedtime
Neuro Assessment/Plan
Assessment
Impressions
1. Acute confusion, initially presented to the ER after follow-up with likely UTI and it does seem that her mental status is worsening since this first ER visit. Patient has some findings suggestive of right parietal lobe lesion with left-sided
neglect and possibly left hemianopia, suspect that patient does have right-sided parietal lobe infarction which is vaguely seen on the CT head noncontrast. Urinary tract infection may also be contributing.
2. History of traumatic brain injury in the past may predispose to confusion
3. Hypertension
4. Hyperlipidemia
5. Abnormal urinalysis with report of dysuria and polyuria recently being treated with antibiotics for UTI
Seizure activity noted by nurse with foaming around the mouth with postictal confusion and lethargy, was given 1 mg IV lorazepam.
CT head repeated after seizure shows similar findings.
EEG study shows slowing and no nonconvulsive seizure activity, patient most likely postictal in addition to some of the sedation from lorazepam.
Seizure etiology highly likely to be due to the acute to subacute right parietal lobe ischemic stroke.
Patient was not a candidate for either tenecteplase or intra-arterial thrombectomy due to timeframe out of window
Plan
Continue levetiracetam 1000 mg every 12 hours
Replace patient's usual aspirin with the use of clopidogrel. The size of the lesion and severity of symptomatology suggests against dual antiplatelet therapy
No indication this time for modifying the patient's usual statin dosing and patient may return to simvastatin 80 mg at bedtime
Provide medical educational materials
Goal of normotension
Goal of normoglycemia
We will follow peripherally.
Subjective/Objective
Subjective Data
Date of Service: May 09, 2024
Objective Data
Vital Signs
Temp Pulse Resp BP Pulse Ox
36.3 C 84 18 183/93 95
05/09/24 07:49 05/09/24 07:49 05/09/24 07:49 05/09/24 07:49 05/09/24 07:49
Lab Results
05/08/24 13:13
05/08/24 13:13
PT 13.7 Sec (11.4-14.6) 05/08/24 13:13
INR 1.07 05/08/24 13:13
APTT 26.6 Sec (23.4-35.0) 05/08/24 13:13
Sodium 139 mmol/L (135-145) 05/08/24 13:13
Potassium 3.7 mmol/L (3.5-5.1) 05/08/24 13:13
BUN 20 mg/dl (7-17) H 05/08/24 13:13
Glucose 202 mg/dl (70-99) H 05/08/24 13:13
Calcium 9.5 mg/dl (8.4-10.2) 05/08/24 13:13
LDL Cholesterol, Calc 53 mg/dl 05/09/24 05:55
Patient Allergies
metformin Allergy (Verified 05/07/24 21:28)
Per Facility
orange Allergy (Verified 05/07/24 21:28)
Per Facility
pollen extracts Allergy (Verified 05/07/24 21:28)
Per Facility
Sulfa (Sulfonamide Antibiotics) Allergy (Verified 05/07/24 21:28)
Per Facility
Physical Exam
-
General: No Apparent Distress and Appears Stated Age
Eyes: Round OU, Maybeury Conjunctivae and No Ptosis
HEENT: Anicteric and Moist Mucous Membranes
Neck: Full Range of Motion
Respiratory: No Dyspnea
Cardiac: No JVD
GI: Non-distended
Skin: Unremarkable
Extremities: No Clubbing, No Cyanosis and No Edema
Psych: Negative Intact Judgement/Insight
Extended Neurological Exam
Mood & Affect: Depressed and Other (Irritable)
Attention Span & Concentration: Awake, Alert, Interactive and Unable to Perform 2 Step Request
Memory: Unable to Recall Personal History
Tremor: Hand Tremor Absent and Head Tremor Absent
Involuntary Movement: None
Speech: Quality Unremarkable and Mildly Reduced Output
Cranial Nerve II: Left Eye: Pupillary Size Unremarkable and Visual Negrete Grossly Intact
Cranial Nerve II: Right Eye: Pupillary Size Unremarkable and Visual Negrete Grossly Intact
Cranial Nerves III, IV, : Extraocular Movement: Grossly Intact
Cranial Nerve VII: Facial Symmetry: Normal Facial Symmetry
Cranial Nerve VIII: Hearing: Unremarkable Hearing to Normal Conversational Volume
Cranial Nerve XI: Shoulder Shrug: Reduced on Left; Negative Reduced on Right
Muscle Bulk & Tone: Bulk Unremarkable and Tone Unremarkable
Pronator Drift: Drift in Left Upper Extremity and Unable to Assess (Left lower extremity due to weakness); Negative Drift in Right Upper Extremity or Drift in Right Lower Extremity
Touch Sensation: Unremarkable
Coordination: Reaches for Objects without Difficulty (Using right upper extremity)
Gait & Station: Unable to Assess
Data Reviewed
-
MRI Head: Report Reviewed and Image Reviewed
MRA Head: Pending
MRA Neck: Pending
Labs: Report Reviewed
Lipid Profile: Report Reviewed
Reviewed with: Physician and Patient
Old Records: Summarized
Past History
Past History
ED Past Medical History: CVA, HTN, Hypercholesterolemia, IDDM, Psychiatric and Other (TBI)
ED Past Surgical History: Gynecological (Vulvar carcinoma resection, bladder tumor resection, TURBT)
Social History
Tobacco: Non-smoker
Alcohol: None
Family History
Family History: Other (Reviewed and noncontributory)
Medications
-
Medications:
Generic Name Dose Route Start Last Admin
Trade Name Freq PRN Reason Stop Dose Admin
Acetaminophen 1,000 mg 05/08/24 08:00 05/09/24 08:39
Acetaminophen 500 Mg Tablet PO 06/05/24 07:59 1,000 mg
TID YUVAL Administration
Acetaminophen 650 mg 05/08/24 01:43
Acetaminophen 650 Mg Rectal Suppository RECTAL 06/05/24 01:42
Q4HPRN PRN
LEE, mild pain, or temp >100.4F
Acetaminophen 650 mg 05/08/24 01:43 05/08/24 19:40
Acetaminophen 325 Mg Tablet PO 06/05/24 01:42 650 mg
Q4HPRN PRN Administration
LEE, mild pain, or temp >100.4F
Albuterol 2 puff 05/08/24 01:43
Albuterol Hfa [90 Mcg/Dose] Inhaler INH
R Q4 PRN
sob/wheezing
Protocol
Artificial Tears 2 drops 05/08/24 08:00 05/09/24 08:40
Artificial Tears Pf (Refresh) 10 Drop Droperette BOTH EYES 06/05/24 07:59 2 drops
TID YUVAL Administration
Aspirin 81 mg 05/08/24 08:00 05/09/24 08:39
Aspirin 81 Mg (Enteric Coated) Tablet PO 06/05/24 07:59 81 mg
DAILY YUVAL Administration
Atorvastatin Calcium 40 mg 05/08/24 22:00 05/08/24 22:14
Atorvastatin (Lipitor) 40 Mg Tablet PO 06/05/24 21:59 40 mg
HS YUVAL Administration
Cetirizine HCl 10 mg 05/08/24 08:00 05/09/24 08:39
Cetirizine Hcl 10 Mg Tablet PO 06/05/24 07:59 10 mg
DAILY YUVAL Administration
Clopidogrel Bisulfate 75 mg 05/09/24 08:00 05/09/24 08:39
Clopidogrel 75 Mg Tablet PO 05/29/24 08:01 75 mg
DAILY YUVAL Administration
Dextrose 12.5 grams 05/08/24 01:43
Dextrose 50% (0.5 Grams/Ml) 50 Ml Syringe IV 06/05/24 01:42
[id number] PRN
hypoglycemia
Protocol
Docusate Sodium 100 mg 05/08/24 08:00 05/09/24 08:39
Docusate Sodium 100 Mg Capsule PO 06/05/24 07:59 Not Given
BID YUVAL
Enoxaparin Sodium 40 mg 05/08/24 18:00 05/08/24 17:20
Enoxaparin Sodium 40 Mg/0.4 Ml Syringe SC 06/05/24 17:59 40 mg
QPM YUVAL Administration
Glucagon 1 mg 05/08/24 01:43
Glucagon 1 Mg Vial IM 06/05/24 01:42
PRN PRN
hypoglycemia
Protocol
Hydralazine HCl 10 mg 05/09/24 11:57
Hydralazine 20 Mg/Ml Vial IV 06/05/24 13:31
Q6HPRN PRN
SBP>140
Hydrocortisone 0 applic 05/08/24 08:00 05/09/24 08:41
Hydrocortisone 2.5% (Cream) Tube TOPICAL 06/05/24 07:59 Not Given
BID YUVAL
Insulin Glargine 12 units/ 0.12 mls @ 0 mls/hr 05/08/24 22:00 05/08/24 22:00
Device SC 06/05/24 21:59 0.12 mls
HS YUVAL Administration
As Directed
Insulin Aspart 0 units 05/08/24 07:30 05/09/24 08:07
Insulin Aspart Low Resistance 300 Units/3 Ml Pen.Injctr SC 06/05/24 07:29 1 units
AC YUVAL Administration
Protocol
Levetiracetam 1,000 mg 05/08/24 20:00 05/09/24 09:32
Levetiracetam (100 Mg/Ml) 500 Mg/5 Ml Vial IV 06/05/24 19:59 1,000 mg
Q12 YUVAL Administration
Levothyroxine Sodium 112 mcg 05/08/24 06:00 05/09/24 05:49
Levothyroxine 112 Mcg Tablet PO 06/05/24 05:59 112 mcg
DAILY @ 0600 YUVAL Administration
Lisinopril 20 mg 05/10/24 08:00
Lisinopril 20 Mg Tablet PO 06/07/24 07:59
DAILY YUVAL
Miconazole Nitrate 0 applic 05/08/24 08:00 05/09/24 08:40
Miconazole Powder Bottle TOPICAL 06/05/24 07:59 1 applic
BID YUVAL Administration
Phenazopyridine HCl 200 mg 05/08/24 01:43
Phenazopyridine 200 Mg Tablet PO 06/05/24 01:42
BID PRN
dysuria
Polyethylene Glycol 17 grams 05/08/24 14:07
Polyethylene Glycol Powder 17 Grams Packet PO 06/05/24 14:06
DAILY PRN
constipation
Pregabalin 200 mg 05/08/24 08:00 05/09/24 08:39
Pregabalin 100 Mg Capsule PO 06/05/24 07:59 200 mg
TID YUVAL Administration
Sodium Chloride 0 flush 05/08/24 02:00
Sodium Chloride 0.9% (Flush) Syringe IV 06/05/24 01:59
PER PROTOCOL YUVAL
Tolterodine Tartrate 1 mg 05/08/24 22:00 05/08/24 22:14
Tolterodine Tartrate 1 Mg Tablet PO 06/05/24 21:59 1 mg
HS YUVAL Administration
--- NOTE | 2024-05-09 11:19 | CM ---
SAMAN spoke with nurse Dominic at [facility] [phone].
Per Dominic, pt has been a resident there since 08/2022.
Prior to admission, pt is independent with ambulation, oriented x3, feeds self, ind with adl's.
This facility is a brain injury facility. Facility administers medications and has nursing available.
Pt is currently off floor at MRI.
SAMAN spoke with daughter Dorys ([phone]) who confirms prior to this admit, pt was completely oriented, highly functioning TBI pt, completely ind with adl's and ambulation.
MRI is pending. CT shows + infarct subacute and chronic small and very small infarcts. MRI is pending.
If pt is + for new stroke, perhaps could be a candidate for [facility] program.
Discharge dispo return to facility, vs SNF/rehab pending MRI and PT/OT evals.
Pts son Harjinder is listed as a secondary contact and is a MARKETING PROFESSIONAL, Dorys shares he is a good resource for pt/family for medical knowledge. Harjinder phone # [phone].
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
[2024-05-09 12:29] VITALS: BP 140/59
[2024-05-09] MEDS: LR IV (12:29)
[2024-05-09 12:43] LABS: Glucose - Point of Care 161 mg/dl (70-99)
[2024-05-09] MEDS: ZESTRIL 20 MG PO (13:50)
--- NOTE | 2024-05-09 14:08 | PTOTSP ---
Speech Language Pathology
Swallow Treatment
Patient presents with signs concerning for mild to moderately impaired oropharyngeal swallow in the presence of new acute transcortical ischemic infarct in the right parietal and occipital lobes. Delayed cough observed s/p trials of puree this date.
Deferred advanced trials 2/2 AMS. Unable to rule out silent aspiration at bedside.
Aspiration risk remains increased due to recent CVA and acute on chronic risk factors for dysphagia (i.e., UTI, TBI; hx dysphagia).
Recommend:
1. IDDSI Level 4 (puree), IDDSI Level 0 (thin liquids)
2. Medications crushed in puree
3. Aspiration precautions & feeding strategies - supervision, assistance, PO only when awake/alert, small single sips/bites, slow rate
4. Dysphagia therapy at the acute care level as well as further language/cognitive assessment. Advance diet as able.
[2024-05-09] MEDS: APRESOLINE 10 MG IV ×2 (15:45→19:58)
[2024-05-09] MEDS: LOVENOX 40 MG SC (17:06)
[2024-05-09] MEDS: PROCARDIA XL (EXTENDED RELEASE) 30 MG PO (17:07)
--- NOTE | 2024-05-09 17:11 | PTCARENOTE ---
Notified hospitalist of patients continued hypertension even after PRN hydralazine administration
[2024-05-09 17:14] VITALS: BP 133/82
[2024-05-09 17:15] LABS: Glucose - Point of Care 203 mg/dl (70-99)
[2024-05-09] MEDS: NOVOLOG FLEXPEN-LOW RESISTANCE 2 UNITS SC (17:15)
[2024-05-09 19:00] VITALS: BP 168/71
[2024-05-09] MEDS: HYDROCORTISONE 2.5% CREAM 1 APPLIC TOPICAL (19:57)
[2024-05-09] MEDS: COLACE 100 MG PO (19:57)
[2024-05-09 21:36] LABS: Glucose - Point of Care 183 mg/dl (70-99)
[2024-05-09] MEDS: LIPITOR 40 MG PO (21:50)
[2024-05-09] MEDS: DETROL 1 MG PO (21:50)
[2024-05-09] MEDS: LANTUS 0.119999999999999996 UNITS SC (21:51)
[2024-05-09 23:00] VITALS: BP 117/48
[2024-05-10 03:00] VITALS: BP 128/62
[2024-05-10] MEDS: SYNTHROID 112 MCG PO (06:24)
[2024-05-10 07:34] VITALS: BP 154/63
[2024-05-10] MEDS: ZESTRIL 20 MG PO (08:22)
[2024-05-10] MEDS: REFRESH EYE DROPS (PF) 2 DROPS BOTH EYES ×3 (08:23→21:57)
[2024-05-10] MEDS: PROCARDIA XL (EXTENDED RELEASE) 30 MG PO (08:23)
[2024-05-10] MEDS: ZYRTEC 10 MG PO (08:23)
[2024-05-10] MEDS: PLAVIX 75 MG PO (08:23)
[2024-05-10] MEDS: TYLENOL 1000 MG PO ×3 (08:23→21:57)
[2024-05-10] MEDS: LYRICA 200 MG PO ×3 (08:23→21:57)
[2024-05-10] MEDS: COLACE 100 MG PO ×2 (08:23→21:57)
[2024-05-10] MEDS: DESENEX/MITRAZOL/ZEASORB 1 APPLIC TOPICAL ×2 (08:24→22:00)
[2024-05-10] MEDS: HYDROCORTISONE 2.5% CREAM TOPICAL ×2 (08:24→21:59)
[2024-05-10] MEDS: KEPPRA 1000 MG IV ×2 (08:24→21:57)
[2024-05-10] MEDS: NOVOLOG FLEXPEN-LOW RESISTANCE 1 UNITS SC ×3 (08:33→18:00)
[2024-05-10 08:34] LABS: Glucose - Point of Care 190 mg/dl (70-99)
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
[2024-05-10 11:18] VITALS: BP 132/48
[2024-05-10 12:07] LABS: Glucose - Point of Care 194 mg/dl (70-99)
--- NOTE | 2024-05-10 12:36 | CM ---
SW spoke with daughter regarding dc planning.
Medicare.gov list for facilities around her area was left at bedside for daughter to review with family and choose facilities for referrals
Continue to follow and provide support for SNF placement.
--- NOTE | 2024-05-10 13:29 | CHAP ---
Petra did not open her eyes, but she did speak with difficulty. She seemed to appreciate the company. She told me (with much effort) that she has a Masters of Divinity, her son does also. She welcomed prayer - emotional and spiritual support
provided. Assured her that Pastoral Care is always available to her.
[2024-05-10 15:11] VITALS: BP 115/51
--- NOTE | 2024-05-10 17:01 | PTOTSP ---
Speech Language Pathology
Swallow Treatment/Cognitive Communication Evaluation
Patient presents with signs concerning for mild to moderately impaired oropharyngeal swallow in the presence of new acute transcortical ischemic infarct in the right parietal and occipital lobes. Consumed trials of regular solid this date with no
overt s/s of aspiration or penetration. Recommend upgrade in diet back to soft and bite sized textures 2/2 increased lethargy and slight oral residue. Aspiration risk remains increased due to recent CVA and acute on chronic risk factors for
dysphagia (i.e., UTI, TBI; hx dysphagia).
The Quick Aphasia Battery (QAB) was administered to screen speech, language, and cognition. 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 Her greatest impairments appear to be in the areas of sentence comprehension,
grammatical construction, verbal fluency, recall, and repetition.
Recommend:
1. IDDSI Level 6 (Soft and bite sized), IDDSI Level 0 (thin liquids)
2. Medications as tolerated
3. Aspiration precautions & feeding strategies - supervision, assistance, PO only when awake/alert, small single sips/bites, slow rate
4. Dysphagia therapy and language/cognitive therapy at the acute care level are recommended as able.
5. Speech pathology services for cognitive communication is recommended at the next level of care to target verbal fluency, recall, and problem solving. Services at the next level of care are also recommended for dysphagia management.
[2024-05-10 17:18] LABS: Glucose - Point of Care 198 mg/dl (70-99)
[2024-05-10] MEDS: LOVENOX 40 MG SC (18:01)
[2024-05-10 19:25] VITALS: BP 151/92
[2024-05-10 21:05] LABS: Glucose - Point of Care 260 mg/dl (70-99)
[2024-05-10] MEDS: LIPITOR 40 MG PO (21:57)
[2024-05-10] MEDS: DETROL 1 MG PO (21:59)
[2024-05-10] MEDS: LANTUS 0.119999999999999996 UNITS SC (22:00)
[2024-05-10 23:20] VITALS: BP 120/48
[2024-05-11] VITALS (8 sets, daily range): BP systolic 88–142; BP diastolic 50–64; PULSE 75; O2SAT 96
[2024-05-11 06:30] LABS: % Basophils 0.4 % (0-2); % Eosinophils 4.1 % (0-6); % Immature Granulocytes 0.5 % (0-0.5); % Lymphocytes 22.3 % (20.5-51.1); % Monocytes 10.9 % (1.7-9.3); % Neutrophils 61.8 % (42.2-75.2); Absolute Eosinophils 0.3 10^3/uL (0-0.7); Absolute Lymphocytes 1.7 10^3/uL (1.2-3.4); Absolute Monocytes 0.8 10^3/uL (0.1-0.6); Absolute Neutrophils 4.7 10^3/uL (1.4-6.5); Hematocrit 28.8 % (37.0-47.0); Hemoglobin 9.4 g/dL (12.0-16.0); Mean Corp Hgb Conc. 32.6 g/dL (33.0-37.0); Mean Corpuscular Hgb 28.5 pg (27.0-31.0); Mean Corpuscular Volume 87.3 fL (81.0-99.0); Mean Platelet Volume 11.5 fL (7.4-10.4); Nucleated Red Blood Cells % 0 %; Platelet Count 156 10^3/uL (130-400); Red Cell Dist. Width 14.9 % (11.5-14.5); White Blood Cell Count 7.6 10^3/uL (4.8-10.8)
[2024-05-11 07:34] LABS: Blood Urea Nitrogen 35 mg/dl (7-17); Calcium 8.5 mg/dl (8.4-10.2); Carbon Dioxide 34 mmol/L (22-30); Chloride 101 mmol/L (98-107); Estimated Creatinine Clearance 33 ml/min; Glucose 142 mg/dl (70-99); Potassium 3.2 mmol/L (3.5-5.1); Sodium 141 mmol/L (135-145); eGFR 28.48
[2024-05-11 07:45] LABS: Glucose - Point of Care 191 mg/dl (70-99)
[2024-05-11] MEDS: SYNTHROID 112 MCG PO (09:57)
[2024-05-11] MEDS: NSS 1000 IV ×2 (09:57→20:26)
[2024-05-11] MEDS: PROCARDIA XL (EXTENDED RELEASE) 30 MG PO (09:58)
[2024-05-11] MEDS: LYRICA 200 MG PO (09:58)
[2024-05-11] MEDS: COLACE 100 MG PO ×2 (09:58→20:12)
[2024-05-11] MEDS: REFRESH EYE DROPS (PF) 2 DROPS BOTH EYES ×3 (09:58→22:04)
[2024-05-11] MEDS: PLAVIX 75 MG PO (09:58)
[2024-05-11] MEDS: NOVOLOG FLEXPEN-LOW RESISTANCE 1 UNITS SC ×2 (09:59→17:37)
[2024-05-11] MEDS: ZYRTEC 10 MG PO (09:59)
[2024-05-11] MEDS: TYLENOL 1000 MG PO ×3 (09:59→22:04)
[2024-05-11] MEDS: KEPPRA 1000 MG IV (09:59)
[2024-05-11] MEDS: DESENEX/MITRAZOL/ZEASORB 1 APPLIC TOPICAL ×2 (10:00→20:12)
[2024-05-11] MEDS: HYDROCORTISONE 2.5% CREAM 1 APPLIC TOPICAL ×2 (10:00→20:13)
[2024-05-11] MEDS: KCL 270 MEQ IV (10:01)
[2024-05-11] MEDS: ZESTRIL PO (10:02)
[2024-05-11 11:48] LABS: Urine Albumin 2+ (Neg - Trace); Urine Bilirubin 1+ (Negative); Urine Character Slightly Cloudy (Clear); Urine Color Yellow; Urine Glucose Negative (Negative); Urine Ketone Trace (Negative); Urine Leukocyte 1+ (Negative); Urine Nitrite Negative (Negative); Urine Occult Blood 4+ (Negative); Urine Specific Gravity 1.025 (<1.030); Urine Urobilinogen Negative (Neg - 1+)
[2024-05-11 11:52] LABS: Glucose - Point of Care 299 mg/dl (70-99)
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
[2024-05-11 12:16] LABS: Urine Mucus Moderate
[2024-05-11 12:19] LABS: Urine White Cell 80-90 /HPF (0-5)
[2024-05-11 12:20] LABS: Urine Bacteria Few (Negative); Urine Red Blood Cell >100 /HPF (0-2)
[2024-05-11 12:22] LABS: Urine Amorphous Seen
--- NOTE | 2024-05-11 12:40 | W.PN.UPDATE ---
Update Note
Progress Note Update
With elevated creatinine and BUN compared to baseline will make small decrease in Levetiracetam to 750 mg BID.
[2024-05-11] MEDS: NOVOLOG FLEXPEN-LOW RESISTANCE 3 UNITS SC (13:34)
[2024-05-11] MEDS: ROCEPHIN 1000 MG IV (15:14)
[2024-05-11] MEDS: STERILE WATER FOR INJECTION 10 ML IV (15:15)
[2024-05-11 16:14] LABS: Glucose - Point of Care 198 mg/dl (70-99)
--- NOTE | 2024-05-11 16:33 | CM ---
Case management folloing for d/c planning
PT recommending Acute rehab vs snf
Family previously given options list - spoke with daughter Dorys. Obtained choices - sent referral in Care Port
Pending acceptance
Plan - snf at d/c, will need auth
[2024-05-11] MEDS: LOVENOX 40 MG SC (17:37)
[2024-05-11] MEDS: LYRICA 100 MG PO ×2 (17:37→22:04)
[2024-05-11] MEDS: KEPPRA 750 MG PO (20:12)
[2024-05-11 21:56] LABS: Glucose - Point of Care 189 mg/dl (70-99)
[2024-05-11] MEDS: LANTUS 0.119999999999999996 UNITS SC (22:04)
[2024-05-11] MEDS: LIPITOR 40 MG PO (22:04)
[2024-05-12] VITALS (9 sets, daily range): BP systolic 129–168; BP diastolic 54–69; PULSE 75; O2SAT 95; BMI 33.4
[2024-05-12] MEDS: NSS 1000 IV ×2 (05:47→16:43)
[2024-05-12] MEDS: SYNTHROID 112 MCG PO (05:47)
[2024-05-12 06:31] LABS: Blood Urea Nitrogen 36 mg/dl (7-17); Calcium 7.9 mg/dl (8.4-10.2); Carbon Dioxide 30 mmol/L (22-30); Chloride 106 mmol/L (98-107); Estimated Creatinine Clearance 45 ml/min; Glucose 180 mg/dl (70-99); Hematocrit 28.3 % (37.0-47.0); Hemoglobin 9.1 g/dL (12.0-16.0); Mean Corp Hgb Conc. 32.2 g/dL (33.0-37.0); Mean Corpuscular Hgb 28.5 pg (27.0-31.0); Mean Corpuscular Volume 88.7 fL (81.0-99.0); Mean Platelet Volume 11.4 fL (7.4-10.4); Platelet Count 145 10^3/uL (130-400); Potassium 3.6 mmol/L (3.5-5.1); Red Blood Cell Count 3.19 10^6/uL (4.20-5.40); Red Cell Dist. Width 14.6 % (11.5-14.5); Sodium 139 mmol/L (135-145); White Blood Cell Count 5.1 10^3/uL (4.8-10.8); eGFR 42.09
[2024-05-12 07:30] LABS: Glucose - Point of Care 181 mg/dl (70-99)
[2024-05-12] MEDS: COLACE 100 MG PO ×2 (08:58→20:25)
[2024-05-12] MEDS: NOVOLOG FLEXPEN-LOW RESISTANCE 1 UNITS SC (08:58)
[2024-05-12] MEDS: PLAVIX 75 MG PO (08:58)
[2024-05-12] MEDS: LYRICA 100 MG PO ×3 (08:59→21:44)
[2024-05-12] MEDS: KEPPRA 750 MG PO ×2 (08:59→20:25)
[2024-05-12] MEDS: PROCARDIA XL (EXTENDED RELEASE) 30 MG PO (08:59)
[2024-05-12] MEDS: REFRESH EYE DROPS (PF) 2 DROPS BOTH EYES ×3 (08:59→21:47)
[2024-05-12] MEDS: TYLENOL 1000 MG PO ×3 (09:00→21:45)
[2024-05-12] MEDS: ZYRTEC 10 MG PO (09:00)
[2024-05-12] MEDS: HYDROCORTISONE 2.5% CREAM 1 APPLIC TOPICAL ×2 (09:01→20:29)
[2024-05-12] MEDS: DESENEX/MITRAZOL/ZEASORB 1 APPLIC TOPICAL ×2 (09:01→20:28)
[2024-05-12 11:35] LABS: Glucose - Point of Care 232 mg/dl (70-99)
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
[2024-05-12] MEDS: TYLENOL 650 MG PO (13:05)
[2024-05-12] MEDS: NOVOLOG FLEXPEN-LOW RESISTANCE 2 UNITS SC ×2 (13:06→16:44)
[2024-05-12] MEDS: NSS 500 IV (13:07)
[2024-05-12 16:22] LABS: Glucose - Point of Care 247 mg/dl (70-99)
[2024-05-12] MEDS: ROCEPHIN 1000 MG IV (16:42)
[2024-05-12] MEDS: STERILE WATER FOR INJECTION 10 ML IV (16:42)
[2024-05-12] MEDS: LOVENOX 40 MG SC (16:51)
[2024-05-12] MEDS: LIPITOR 40 MG PO (21:44)
[2024-05-12 21:47] LABS: Glucose - Point of Care 228 mg/dl (70-99)
[2024-05-12] MEDS: LANTUS 0.119999999999999996 UNITS SC (21:47)
[2024-05-12] MEDS: NSS IV (21:48)
[2024-05-12] MEDS: Pyridium 200 MG PO (23:08)
[2024-05-12] MEDS: APRESOLINE 10 MG IV (23:13)
[2024-05-12] MEDS: FLUSH (NSS) 2 FLUSH IV (23:14)
[2024-05-13] VITALS (7 sets, daily range): BP systolic 106–164; BP diastolic 63–78; PULSE 72–75; O2SAT 93; BMI 32.4
[2024-05-13] MEDS: MELATONIN 5 MG PO ×2 (01:46→22:38)
[2024-05-13] MEDS: NSS IV (03:34)
[2024-05-13] MEDS: SYNTHROID 112 MCG PO (05:21)
--- NOTE | 2024-05-13 05:34 | PTCARENOTE ---
Patient awake most of shift. Patient frequently putting legs over sides and making attempts to get OOB. Med sitter in place.
[2024-05-13 06:43] LABS: Blood Urea Nitrogen 23 mg/dl (7-17); Calcium 9.1 mg/dl (8.4-10.2); Carbon Dioxide 30 mmol/L (22-30); Chloride 105 mmol/L (98-107); Estimated Creatinine Clearance 73 ml/min; Glucose 193 mg/dl (70-99); Potassium 3.9 mmol/L (3.5-5.1); Sodium 140 mmol/L (135-145); eGFR > 60.00
[2024-05-13 07:46] LABS: Glucose - Point of Care 212 mg/dl (70-99)
[2024-05-13] MEDS: PLAVIX 75 MG PO (08:52)
[2024-05-13] MEDS: KEPPRA 750 MG PO ×2 (08:52→19:55)
[2024-05-13] MEDS: ZYRTEC 10 MG PO (08:52)
[2024-05-13] MEDS: TYLENOL 1000 MG PO ×3 (08:53→21:27)
[2024-05-13] MEDS: PROCARDIA XL (EXTENDED RELEASE) 30 MG PO (08:53)
[2024-05-13] MEDS: REFRESH EYE DROPS (PF) 2 DROPS BOTH EYES ×3 (08:54→21:26)
[2024-05-13] MEDS: LYRICA 100 MG PO ×3 (08:54→21:28)
[2024-05-13] MEDS: DESENEX/MITRAZOL/ZEASORB 1 APPLIC TOPICAL ×2 (08:54→19:56)
[2024-05-13] MEDS: COLACE 100 MG PO (08:54)
[2024-05-13] MEDS: NOVOLOG FLEXPEN-LOW RESISTANCE 2 UNITS SC (08:55)
[2024-05-13] MEDS: HYDROCORTISONE 2.5% CREAM 1 APPLIC TOPICAL ×2 (09:03→19:56)
--- NOTE | 2024-05-13 09:10 | CM ---
Addendum entered by Tanika Carr 05/13/24 14:00:
Received paco from pts daughter Dorys - will accept bed at [facility] in [place]
Spoke with Shanel [facility] Lia[facility], requested updates
Reports facility will obtain auth
Plan - transfer to [facility] when auth obtained and medically cleared
Addendum entered by Tanika Carr 05/13/24 12:32:
Spoke with pts daughter Dorys regarding additional snf referrals
Pt accepted at [facility] in [place]
Daughter will speak with family and return call
Will need auth
Original Note:
Case management following for d/c planning
Pt for SNF - referrals previously sent in Care Port - reviewed
[facility] - no beds available this week
[facility] - out of network
No response from other referrals
Sent additional referrals in Care Port to facilities in area
Will follow for reply
Will need auth
Plan - anticipate snf at d/c - tbd
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
[2024-05-13 11:29] LABS: Glucose - Point of Care 251 mg/dl (70-99)
[2024-05-13] MEDS: NOVOLOG FLEXPEN-LOW RESISTANCE 3 UNITS SC ×2 (12:39→18:00)
[2024-05-13 16:30] LABS: Glucose - Point of Care 286 mg/dl (70-99)
[2024-05-13] MEDS: LOVENOX 40 MG SC (17:15)
[2024-05-13] MEDS: COLACE PO (19:54)
[2024-05-13] MEDS: LIPITOR 40 MG PO (21:27)
[2024-05-13 21:30] LABS: Glucose - Point of Care 252 mg/dl (70-99)
[2024-05-13] MEDS: LANTUS 0.119999999999999996 UNITS SC (21:31)
[2024-05-13] MEDS: Pyridium 200 MG PO (21:50)
--- NOTE | 2024-05-13 22:40 | PTCARENOTE ---
Pt continues to get up every 15 min. Restrains order and placed for safety at 2234. pt is confused, restless and agitated. Pt appears to be more coherent in the AM. NIH scale remains a 4. pt does have expressive aphasia and lt side weakness. will
continue to monitor.
--- NOTE | 2024-05-13 22:42 | PTCARENOTE ---
Pt has been restless, anxious and aggressive. Pt AAox2 to 1, forgetful and confused. CLINICAL REGISTERED NURSE notify. Melatonin order. Pt high risk of fall as she attempts to get up every 15 min.
[2024-05-13] MEDS: LIDOCAINE 4% PATCH 1 PATCH TOPICAL (23:21)
[2024-05-14 03:15] VITALS: BMI 32.2
[2024-05-14] MEDS: SYNTHROID 112 MCG PO (05:51)
--- NOTE | 2024-05-14 06:09 | W.PN.UPDATE ---
Update Note
Progress Note Update
RN notified patient being restless and agitated and continuos to get out of bed. Restraints placed for protection. Advised RN to give Tylenol and Melatonin, Also placed Lidocaine patch to Right shoulder. Agitation likely due to pain, ,
psych hx.
patient calm at present.
[2024-05-14 08:01] VITALS: BP 181/78
[2024-05-14 08:18] LABS: Glucose - Point of Care 212 mg/dl (70-99)
[2024-05-14] MEDS: REFRESH EYE DROPS (PF) 2 DROPS BOTH EYES ×3 (08:21→22:15)
[2024-05-14] MEDS: KEPPRA 750 MG PO ×2 (08:22→20:22)
[2024-05-14] MEDS: ZYRTEC 10 MG PO (08:23)
[2024-05-14] MEDS: PLAVIX 75 MG PO (08:23)
[2024-05-14] MEDS: NOVOLOG FLEXPEN-LOW RESISTANCE 2 UNITS SC (08:24)
[2024-05-14] MEDS: COLACE 100 MG PO ×2 (08:24→20:22)
[2024-05-14] MEDS: LYRICA 100 MG PO ×3 (08:24→22:15)
[2024-05-14] MEDS: PROCARDIA XL (EXTENDED RELEASE) 30 MG PO (08:24)
[2024-05-14] MEDS: TYLENOL 1000 MG PO ×3 (08:25→22:15)
[2024-05-14] MEDS: DESENEX/MITRAZOL/ZEASORB 1 APPLIC TOPICAL ×2 (08:26→20:23)
[2024-05-14] MEDS: HYDROCORTISONE 2.5% CREAM 1 APPLIC TOPICAL ×2 (08:28→20:23)
[2024-05-14] MEDS: RISPERDAL 0.25 MG PO (08:30)
[2024-05-14 11:15] VITALS: BP 128/55; PULSE 75; O2SAT 95
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
[2024-05-14 11:46] LABS: Glucose - Point of Care 330 mg/dl (70-99)
[2024-05-14 12:03] VITALS: BP 128/55; PULSE 76; O2SAT 99
[2024-05-14] MEDS: NOVOLOG FLEXPEN-LOW RESISTANCE 4 UNITS SC (12:09)
[2024-05-14 12:14] VITALS: BP 139/58
--- NOTE | 2024-05-14 15:03 | CM ---
Addendum entered by Tanika Carr 05/14/24 16:06:
Spoke with pts daughter Dorys - aware of possible transfer tomorrow
Addendum entered by Tanika Carr 05/14/24 15:57:
Spoke with Yany from [facility] [place], auth approved
Pt required restraint overnight - discontinued at 0800 - can accept if remains restraint free for 24 hrs
Plan - [facility] [place] tomorrow if remains without restraints x 24hrs, and medically ready
R - [phone]
F - [phone]
Original Note:
Case management following for d/c planning
Chart reviewed
Pt for [facility] in [place]
Auth pending - facility obtaining
Plan - Transfer to [facility] in [place] when auth obtained and medically ready
[2024-05-14] MEDS: ZESTRIL 10 MG PO (15:35)
[2024-05-14] MEDS: APRESOLINE 10 MG IV (15:36)
[2024-05-14 15:45] VITALS: BP 181/72
[2024-05-14 17:14] LABS: Glucose - Point of Care 287 mg/dl (70-99)
[2024-05-14] MEDS: LOVENOX 40 MG SC (17:46)
[2024-05-14] MEDS: NOVOLOG FLEXPEN-LOW RESISTANCE 3 UNITS SC (17:47)
--- NOTE | 2024-05-14 18:27 | PTCARENOTE ---
BP 181/72. HR 72. Scheduled Lisinopril and PRN Hydralazine administered. Follow up BP 145/65. HR 81. Pt voided 150ml of orange urine after Diaz removal.
[2024-05-14 18:36] VITALS: BP 145/65
[2024-05-14 22:01] LABS: Glucose - Point of Care 260 mg/dl (70-99)
[2024-05-14] MEDS: LIDOCAINE 4% PATCH 1 PATCH TOPICAL (22:14)
[2024-05-14] MEDS: LANTUS 0.119999999999999996 UNITS SC (22:14)
[2024-05-14] MEDS: LIPITOR 40 MG PO (22:15)
[2024-05-14] MEDS: RISPERDAL 0.5 MG PO (22:15)
[2024-05-15] MEDS: SYNTHROID 112 MCG PO (05:41)
[2024-05-15 05:58] VITALS: BP 143/66
[2024-05-15] MEDS: APRESOLINE 10 MG IV (06:12)
[2024-05-15 07:30] VITALS: BP 131/62
[2024-05-15 08:03] LABS: Glucose - Point of Care 250 mg/dl (70-99)
[2024-05-15] MEDS: NOVOLOG FLEXPEN-LOW RESISTANCE 3 UNITS SC ×2 (08:42→13:00)
[2024-05-15] MEDS: LYRICA 100 MG PO ×2 (08:43→15:31)
[2024-05-15] MEDS: PROCARDIA XL (EXTENDED RELEASE) 30 MG PO (08:43)
[2024-05-15] MEDS: KEPPRA 750 MG PO (08:43)
[2024-05-15] MEDS: COLACE 100 MG PO (08:43)
[2024-05-15] MEDS: PLAVIX 75 MG PO (08:44)
[2024-05-15] MEDS: ZESTRIL 10 MG PO (08:44)
[2024-05-15] MEDS: ZYRTEC 10 MG PO (08:44)
[2024-05-15] MEDS: TYLENOL 1000 MG PO ×2 (08:44→15:31)
[2024-05-15] MEDS: REFRESH EYE DROPS (PF) 2 DROPS BOTH EYES ×2 (08:45→15:31)
[2024-05-15] MEDS: HYDROCORTISONE 2.5% CREAM 1 APPLIC TOPICAL (08:45)
[2024-05-15] MEDS: DESENEX/MITRAZOL/ZEASORB 1 APPLIC TOPICAL (08:45)
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
[2024-05-15 10:21] VITALS: BP 112/51; BP 127/56; PULSE 81; O2SAT 98
[2024-05-15 10:22] VITALS: BP 127/56; PULSE 81; O2SAT 95
[2024-05-15 12:48] LABS: Glucose - Point of Care 261 mg/dl (70-99)
--- NOTE | 2024-05-15 12:59 | W.DCSUMMARY ---
Discharge Summary
Discharge Data
Date of Admission: 05/08/24
Date of Discharge: 05/15/24
-
Pending Results: No
Hospital Course
78 years old female presented to the hospital with a fall and confusion. Scan of the head showed ischemic stroke on the right parietal lobe. Patient was evaluated by neurologist. Magnetic resonant imaging of the brain showed large 7.7 cm acute
transcortical ischemic infarct in the right parietal and occipital lobes containing severe cytotoxic edema. Small chronic ischemic infarct in the left frontal/temporal lobes. Small chronic infarct in the left basal ganglia and cerebellar
hemisphere. Severe left and moderate right temporal lobe volume loss suggesting underlying degenerative disease possible Alzheimer dementia. MRA head and neck was negative for acute stenosis. Echocardiogram did not show arterial thrombus, left
ventricular ejection fraction 55 to 60%, moderate mitral stenosis, moderate aortic stenosis with peak/mean gradients across the aortic valve were 38/19 mmHg respectively. Neurologist recommended to discontinue aspirin and to continue with the
Plavix and high-dose statin therapy. She had urine culture that did not show infection. Patient had seizure and electroencephalogram was negative for seizure activity. Neurologist recommended to treat with Keppra. Patient had low oral intake and
had acute kidney injury with urinary retention noted. She was given intravenous fluid and she failed voiding trial. Diaz catheter was placed and was started on Flomax. Plan was to do another voiding trial after starting rehab. Kidney function
returned back to normal. Patient had acute delirium in the hospital and was given low-dose risperidone with good improvement. Patient was followed by speech therapy and she was maintained on modified oral diet. She was noted to have uncontrolled
essential hypertension and Procardia was added with good response. Patient had old right oblique fracture of the mid distal clavicular. Curbside consultation to orthopedic doctor who recommended no restriction with use of sling for comfort. CODE
STATUS was discussed with her daughter and according to patient's wishes, she was DO NOT RESUSCITATE/DO NOT INTUBATE. Patient was evaluated by physical therapy and recommended nursing home facility placement. 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 She remained hemodynamically stable and was discharged in a stable condition.
Discharge Plan
-
Patient Disposition: Snf/SNF
Discharge Diagnosis/Procedures: Acute large 7.7 cm acute transcortical ischemic infarct in the right parietal and occipital lobes with resultant seizure
History of traumatic brain injury
Severe osteoarthritis
Insulin-dependent diabetes, continue Accu-Chek before meals and at bedtime
Diabetic neuropathy, decreased the dose of Lyrica to avoid lethargy
History of valvular carcinoma status postresection 2022
Essential hypertension, added nifedipine
Hyperlipidemia
Right old oblique fracture of the mid-distal clavicular diaphysis with incomplete osseous union, orthopedic recommended to use a sling if pain. No specific restrictions.
Diet: As tolerated
Referrals:
Teofilo Carson MD [Active] - in one month
Sukhjinder Enamorado DO [Family Provider] - in one to two weeks
Prescriptions:
New
levetiracetam 500 mg Tablet
750 mg PO BID Qty: 60 0RF
nifedipine 30 mg Tablet Extended Release
30 mg PO DAILY Qty: 30 0RF
clopidogrel 75 mg Tablet
75 mg PO DAILY Qty: 30 0RF
risperidone 0.5 mg Tablet
0.5 mg PO HSPRN PRN (Reason: severe agitation) Qty: 10 0RF
pregabalin 100 mg Capsule
100 mg PO TID Qty: 90 0RF
Continued
lidocaine 4 % Adhesive Patch,Medicated
1 patch TOPICAL DAILY PRN (Reason: topical pain)
Rx Instructions:
Remove @ HS
cetirizine 10 mg Tablet
10 mg PO DAILY
loperamide 2 mg Tablet
2 mg PO Q8H PRN (Reason: Loose stools)
simvastatin 80 mg Tablet
80 mg PO HS
acetaminophen 500 mg Tablet
1,000 mg PO TID
methenamine hippurate 1 gram Tablet
1 g PO Q12H
magnesium hydroxide [Milk of Magnesia] 400 mg/5 mL Suspension
30 ml PO HS PRN (Reason: if no bm in 3 days)
bisacodyl 10 mg Suppository
10 mg IL DAILY
nystatin 100,000 unit/gram Cream
1 applic TOPICAL BID
lisinopril 10 mg Tablet
10 mg PO DAILY
Enema 19-7 gram/118 mL Enema
118 ml IL DAILY PRN (Reason: no result from bisacodyl)
hydrocortisone 2.5 % Cream
1 applic TOPICAL BID
Rx Instructions:
to left thigh
polyethylene glycol 3350 [Miralax] 17 gram/dose Powder
17 g PO DAILY PRN (Reason: constipation)
estradiol 0.01 % (0.1 mg/gram) Cream
1 g VAGINAL MOFR@1999
albuterol sulfate 90 mcg/actuation Hfa Aerosol Inhaler
2 puff INHALATION R Q4 PRN (Reason: sob/wheezing)
docusate sodium 100 mg Tablet
100 mg PO BID
glipizide 5 mg Tablet
5 mg PO BID
levothyroxine 112 mcg Tablet
112 mcg PO DAILY
calcium carbonate-vitamin D3 [Calcium 600 + D(3)] 600 mg-10 mcg (400 unit) Tablet
1 tab PO DAILY
insulin glargine [Basaglar KwikPen U-100 Insulin] 100 unit/mL (3 mL) Insulin Pen
22 unit SC HS
Systane Complete 0.6 % Drops
2 drp BOTH EYES TID
Trulicity 3 mg/0.5 mL Pen Injector
3 mg SC WE
phenazopyridine 200 mg Tablet
200 mg PO BID PRN (Reason: dysuria)
lidocaine 4 % Cream
1 applic TOPICAL QID
Patient Comments:
05/07/2024: apply to bilateral hands
mineral oil-hydrophil petrolat Ointment
1 applic TOPICAL BID
Patient Comments:
05/07/2024: apply to external genitalia
trospium 20 mg tablet
20 mg PO HS
Discontinued
fluconazole 150 mg Tablet
150 mg PO Q72H PRN (Reason: prophylaxis)
aspirin [Aspir-81] 81 mg Tablet,Delayed Release (Dr/Ec)
81 mg PO DAILY
hydrocortisone 2.5 % Cream
1 applic TOPICAL BID PRN (Reason: to vaginal irritation)
Saline Mist 0.65 % Aerosol,[place]
2 spray INTRANASAL DAILY PRN (Reason: dry nose)
pregabalin 200 mg Capsule
200 mg PO TID
CeraVe Lotion
1 applic TOPICAL BID
Rx Instructions:
to hands
Azo Cranberry 250 mg Tablet,Chewable
500 mg PO TID
Diabetic Tussin Chest Conge
10 ml PO Q4H PRN (Reason: Cough)
ibuprofen 800 mg tablet
800 mg PO TID@0600,1400,2200
fluticasone propionate 50 mcg/actuation [place],Suspension
1 spray INTRANASAL BID
ciprofloxacin HCl 500 mg tablet
500 mg PO BID
Discharge Orders:
Discharge Patient (As Directed); Ordered 05/15/24
Ordered By: Kalia Kebede
Discharge Date and Time
Discharge Date/Time: 05/15/24 19:15
Print Language: EGYPTIAN
--- NOTE | 2024-05-15 13:55 | CM ---
Addendum entered by Guerita Tipton 05/15/24 17:14:
IMM benefit explained to patient's daughter
Addendum entered by Guerita Tipton 05/15/24 15:33:
ambulance poultry picker scheduled for 8:00 PM
Original Note:
Spoke with Yany Amador #[phone] @ [facility]; confirmed that bed is available today and they can accept anytime
Plan: discharge to [facility] via ambulance today
Left a voice mail for daughter Dorys #[phone] to call
[2024-05-15] MEDS: RISPERDAL 0.25 MG PO (15:31)
[2024-05-15 15:50] VITALS: BP 143/65
[2024-05-15 16:54] LABS: Glucose - Point of Care 303 mg/dl (70-99)
[2024-05-15] MEDS: NOVOLOG FLEXPEN-LOW RESISTANCE 4 UNITS SC (17:03)
[2024-05-15] MEDS: LOVENOX 40 MG SC (17:04)
== END 2024-05-15 19:15 | DRG 64 ==
LOC: 3 WEST ACU 01:19
PROVIDERS: Clinical Nurse Specialist Family Health; Hospitalist; ADMITTING PHYSICIAN Student in an Organized Health Care Education/Training Program; ATTENDING PHYSICIAN Internal Medicine; CONSULT PHYSICIAN Student in an Organized Health Care Education/Training Program; EMERGENCY PHYSICIAN Emergency Medicine; FAMILY PHYSICIAN Internal Medicine Geriatric Medicine
DX: I63.9 Cerebral infarction, unspecified (principal); G93.41 Metabolic encephalopathy; G93.6 Cerebral edema; N17.9 Acute kidney failure, unspecified; N39.0 Urinary tract infection, site not specified; F05 Delirium due to known physiological condition; R47.01 Aphasia; E11.40 Type 2 diabetes mellitus with diabetic neuropathy, unspecified; R56.9 Unspecified convulsions; Z66 Do not resuscitate; E03.9 Hypothyroidism, unspecified; I10 Essential (primary) hypertension; R29.712 NIHSS score 12; E78.5 Hyperlipidemia, unspecified; K59.00 Constipation, unspecified; M47.812 Spondylosis without myelopathy or radiculopathy, cervical region; M50.322 Other cervical disc degeneration at C5-C6 level; N89.8 Other specified noninflammatory disorders of vagina; M25.551 Pain in right hip; M25.511 Pain in right shoulder; R29.6 Repeated falls; R53.1 Weakness; R06.02 Shortness of breath; R06.2 Wheezing; Z79.4 Long term (current) use of insulin; Z79.82 Long term (current) use of aspirin; Z79.84 Long term (current) use of oral hypoglycemic drugs; Z79.890 Hormone replacement therapy; Z79.899 Other long term (current) drug therapy; Z87.820 Personal history of traumatic brain injury; Z85.51 Personal history of malignant neoplasm of bladder; Z85.44 Personal history of malignant neoplasm of other female genital organs
CPT/HCPCS: 70450; 70544; 70549; 70551; 71045; 72125; 73030; 80048; 80053; 80061; 81003; 81015; 82962; 83036; 83605; 83735; 85025; 85027; 85610; 85730; 87040; 87086; 92507; 92523; 92526; 92610; 93005; 93306; 95812; 96374; 97110; 97116; 97163; 97167; 97530; 97535; 99285; A9575; A9585